=== PATIENT | male | born 1955 | race Caucasian/White ===

== ENCOUNTER 2023-05-01 09:43 | Inpatient (IN) | payer MEDICARE ==
[~2023-05-01] VITALS: Ht 188 cm; Wt 115.2 kg
[2023-05-01 10:50] LABS: Hemoglobin 14.4 g/dL (13.5-17.5); Mean Corpuscular HGB 25.9 pg (26.0-34.0); Mean Corpuscular HGB Conc 35.1 g/dL (31.5-36.5); Mean Corpuscular Volume 74 fL (80-100); Platelet Count 339 K/mm3 (150-400); RDW Standard Deviation 34.2 fL (35.1-46.3); Red Blood Cell Count 5.56 M/mm3 (4.30-5.90); White Blood Cell Count 18.56 K/mm3 (4.00-11.30)
[2023-05-01 11:23] LABS: Albumin, Blood 3.4 g/dL (3.4-5.0); Albumin/Globulin Ratio 0.8 (0.8-1.8); Bilirubin, Total 1.7 mg/dL (0.1-1.0); Creatinine, Blood 1.29 mg/dL (0.60-1.20); Globulin, Blood 4.1 g/dL (2.2-4.0); Potassium, Blood 2.3 mmol/L (3.5-5.5); Total Protein, Blood 7.5 g/dL (6.4-8.2)
[2023-05-01 11:26] LABS: BASOPHILS PERCENT MAN 0 % (0-2); EOSINOPHILS ABSOLUTE MAN 0.18 K/mm3 (0.00-0.68); EOSINOPHILS PERCENT MAN 1 % (0-6); LYMPHOCYTES % ATYPICAL MANUAL 1 % (0-0); LYMPHOCYTES ABSOLUTE MAN 6.49 K/mm3 (0.84-5.20); LYMPHOCYTES PERCENT MAN 34 % (21-46); MONOCYTES ABSOLUTE MAN 1.67 K/mm3 (0.16-1.47); MONOCYTES PERCENT MAN 9 % (4-13); SEG NEUTROPHILS PERCENT MAN 55 % (41-73); TOTAL CELLS COUNTED 100
[2023-05-01] MEDS ORDERED: ATEN50 PO (15:47)
[2023-05-01] MEDS ORDERED: SPIRONOLACTONE25 MG PO (15:48)
[2023-05-01] MEDS ORDERED: SOAANZ20 M3 PO (15:48)
[2023-05-01] MEDS ORDERED: CHLO25B PO (15:49)
[2023-05-01] MEDS ORDERED: PANTOPRAZOLE SO2010 PO (15:49)
[2023-05-01] MEDS ORDERED: ATOR40TA PO (15:49)
[2023-05-01] MEDS ORDERED: PLAVIX75 MG PO (15:50)
[2023-05-01] MEDS ORDERED: Prinivil10 MG PO (15:50)
[2023-05-01] MEDS ORDERED: XARELTO20 M1 PO (15:50)
[2023-05-01] MEDS ORDERED: EZETIMIBE10 M6 PO (15:51)
[2023-05-01] MEDS ORDERED: POTA10T PO (15:53)
[2023-05-01 17:32] VITALS: BP 158/102
[2023-05-01 18:04] LABS: Albumin, Blood 3.6 g/dL (3.4-5.0); Anion Gap 12 mmol/L (6-16); Blood Urea Nitrogen 32 mg/dL (8-24); Bun/Creatinine Ratio 25.4 (12.0-20.0); CO2, Blood 32 mmol/L (21-32); Calcium, Blood 9.1 mg/dL (8.5-10.1); Chloride, Blood 77 mmol/L (98-108); Creatinine, Blood 1.26 mg/dL (0.60-1.20); Glomerular Filtration Rate 63 (60-); Glucose, Blood 145 mg/dL (70-99); Magnesium, Blood 2.8 mg/dL (1.6-2.4); Phosphorus, Blood 3.6 mg/dL (2.5-4.9); Potassium, Blood 2.6 mmol/L (3.5-5.5); Sodium, Blood 121 mmol/L (136-145)
--- NOTE | 2023-05-01 18:49 | NUR ---
ADMISSION MR GARRETT ARRIVED FROM THE ER AT 1655 TO BE IMMEDIATELY TRANSFERED DOWN TO NUCLEAR MEDICINE. PLAN FOR STRESS TEST TOMORROW AM. PT ACKNOWLEDGED EDUCATION ON NO CAFFEINE AFTER 7PM AND NPO EXCEPT WATER AFTER MIDNIGHT. NO CHEST PAIN OR SOB. NO PAIN WHILE RESTING IN BED, HE SAID HE DOES GET RIGHT LEG PAIN WHEN HE STANDS OR WALKS. BED LOW, CALL LIGHT IN REACH.
[2023-05-01 19:28] VITALS: BP 164/98
[2023-05-02] VITALS (8 sets, daily range): BP systolic 156–182; BP diastolic 69–111
[2023-05-02 04:54] LABS: BASOPHILS ABSOLUTE AUTO 0.04 K/mm3 (0.00-0.23); BASOPHILS PERCENT AUTO 0 % (0-2); EOSINOPHILS PERCENT AUTO 0 % (0-6); Hematocrit 36.8 % (37.0-53.0); IMMATURE GRAN ABSOLUTE AUTO 0.06 K/mm3 (0.00-0.10); IMMATURE GRAN PERCENT AUTO 0 % (0-1); LYMPHOCYTES ABSOLUTE AUTO 4.65 K/mm3 (0.84-5.20); LYMPHOCYTES PERCENT AUTO 32 % (21-46); MONOCYTES ABSOLUTE AUTO 1.73 K/mm3 (0.16-1.47); MONOCYTES PERCENT AUTO 12 % (4-13); Mean Corpuscular HGB 26.4 pg (26.0-34.0); Mean Corpuscular HGB Conc 35.3 g/dL (31.5-36.5); Mean Corpuscular Volume 75 fL (80-100); Mean Platelet Volume 9.3 fL (9.1-12.4); NEUTROPHILS ABSOLUTE AUTO 8.11 K/mm3 (1.96-9.15); NEUTROPHILS PERCENT AUTO 56 % (41-73); Platelet Count 267 K/mm3 (150-400); RDW Coefficient Variation 13.1 % (11.7-14.2); RDW Standard Deviation 35.1 fL (35.1-46.3); Red Blood Cell Count 4.92 M/mm3 (4.30-5.90); White Blood Cell Count 14.59 K/mm3 (4.00-11.30)
[2023-05-02 05:26] LABS: Magnesium, Blood 2.3 mg/dL (1.6-2.4)
[2023-05-02 05:34] LABS: Albumin, Blood 2.9 g/dL (3.4-5.0); Albumin/Globulin Ratio 0.8 (0.8-1.8); Bilirubin, Total 1.6 mg/dL (0.1-1.0); Bun/Creatinine Ratio 24.2 (12.0-20.0); Calcium, Blood 8.9 mg/dL (8.5-10.1); Creatinine, Blood 1.2 mg/dL (0.60-1.20); Globulin, Blood 3.5 g/dL (2.2-4.0); Phosphorus, Blood 2.8 mg/dL (2.5-4.9); Potassium, Blood 2.4 mmol/L (3.5-5.5); Total Protein, Blood 6.4 g/dL (6.4-8.2)
--- NOTE | 2023-05-02 06:37 | NUR ---
PT IS AOX4, AMBULATORY WITH PAIN IN RLE, DENIES CHEST PAIN/SOB, POTASSIUM CRITICALLY LOW THIS MORNING, MD ORDERED PO AND IV POTASSIUM. PT HAS NOT HAD CAFFEINE OR FOOD FOR PENDING STRESS TEST TODAY. FIRE SAFETY REVIEWED.
--- NOTE | 2023-05-02 10:10 | NUR ---
RN NOTE MR GERRY HAS 2/10 R LEG PAIN AT REST, INCREASES WHEN HE STANDS. NPO EXCEPT WATER FOR PLANNED 11AM STRESS TEST. DENIES CHEST PAIN OR SOB. POTASSOIUM IV REPLACEMENT ALMOST COMPLETED. BED LOW, CALL LIGHT IN REACH.
[2023-05-02 12:08] LABS: Albumin, Blood 3.5 g/dL (3.4-5.0); Anion Gap 8 mmol/L (6-16); Blood Urea Nitrogen 28 mg/dL (8-24); CO2, Blood 32 mmol/L (21-32); Calcium, Blood 9.1 mg/dL (8.5-10.1); Chloride, Blood 86 mmol/L (98-108); Creatinine, Blood 1.12 mg/dL (0.60-1.20); Glomerular Filtration Rate 72 (60-); Glucose, Blood 131 mg/dL (70-99); Phosphorus, Blood 2.4 mg/dL (2.5-4.9); Sodium, Blood 126 mmol/L (136-145)
--- NOTE | 2023-05-02 15:45 | NUR ---
SHIFT SUMMARY MR GERRY HAD HIS STRESS TEST TODAY FOLLOWED BY BEDSIDE ECHO. TELE AFIB. JAKOB CHIU ON. PT SITTING IN A RECLINER NOW WATCHING SPORTS WITH HIS , DENIES ANY NEEDS CURRENTLY. HE HAS SOME R LEG PAIN, WORSE ON AMBULATING AND STANDING, GIVEN TYLENOL WITH SOME RELIEF. NO CHEST PAIN OR SOB.
--- NOTE | 2023-05-02 17:58 | NUR ---
MD CALL DR DANG CALLED FOR HYPERTENSION. TELEPHONE ORDER FOR HYDRALAZINE 10-20MG IV Q6HRS PRN SBP GREATER THAN 160. READ BACK DONE AND ENTERED INTO Verid.
[2023-05-03] VITALS (14 sets, daily range): BP systolic 93–212; BP diastolic 49–108
[2023-05-03 04:52] LABS: BASOPHILS ABSOLUTE AUTO 0.05 K/mm3 (0.00-0.23); BASOPHILS PERCENT AUTO 0 % (0-2); EOSINOPHILS PERCENT AUTO 0 % (0-6); Hematocrit 36.3 % (37.0-53.0); Hemoglobin 12.4 g/dL (13.5-17.5); IMMATURE GRAN ABSOLUTE AUTO 0.07 K/mm3 (0.00-0.10); IMMATURE GRAN PERCENT AUTO 1 % (0-1); LYMPHOCYTES ABSOLUTE AUTO 4.13 K/mm3 (0.84-5.20); LYMPHOCYTES PERCENT AUTO 31 % (21-46); MONOCYTES ABSOLUTE AUTO 1.44 K/mm3 (0.16-1.47); MONOCYTES PERCENT AUTO 11 % (4-13); Mean Corpuscular HGB 26.2 pg (26.0-34.0); Mean Corpuscular HGB Conc 34.2 g/dL (31.5-36.5); Mean Corpuscular Volume 77 fL (80-100); Mean Platelet Volume 9.3 fL (9.1-12.4); NEUTROPHILS ABSOLUTE AUTO 7.74 K/mm3 (1.96-9.15); NEUTROPHILS PERCENT AUTO 58 % (41-73); Platelet Count 273 K/mm3 (150-400); RDW Coefficient Variation 13.1 % (11.7-14.2); RDW Standard Deviation 36.4 fL (35.1-46.3); Red Blood Cell Count 4.74 M/mm3 (4.30-5.90); White Blood Cell Count 13.43 K/mm3 (4.00-11.30)
[2023-05-03 05:46] LABS: Anion Gap 6 mmol/L (6-16); Blood Urea Nitrogen 22 mg/dL (8-24); Bun/Creatinine Ratio 20.8 (12.0-20.0); CO2, Blood 31 mmol/L (21-32); Calcium, Blood 8.7 mg/dL (8.5-10.1); Chloride, Blood 92 mmol/L (98-108); Creatinine, Blood 1.06 mg/dL (0.60-1.20); Glomerular Filtration Rate 77 (60-); Glucose, Blood 128 mg/dL (70-99); Phosphorus, Blood 2.2 mg/dL (2.5-4.9); Potassium, Blood 3.1 mmol/L (3.5-5.5); Sodium, Blood 129 mmol/L (136-145)
--- NOTE | 2023-05-03 07:39 | NUR ---
PT EXPERIENCED INCREASING HYPERTENSION THROUGH THE NIGHT, HYDRALAZINE WAS NOT EFFECTIVE. AROUND 0530 PT COMPLAINED OF CHEST PAIN AND BP INCREASED AGAIN. MD CALLED, EKG COMPLETED, FOLLOWED ORDERS. CP HAS RESOLVED, BP IS DECREASING, PAIN IS ALSO DECREASING AFTER TYLENOL. OTHERWISE NO ACUTE CHANGES NOTED. FIRE SAFETY REVIEWED.
--- NOTE | 2023-05-03 09:09 | NUR ---
MD CALL PT C/O FEELING DIZZY, BLURRED VISION, C/O "PERCEPTION BEING OFF". BLOOD PRESSURE LOW. DR DANG CALLED AND INFORMED - SAID TO GIVE PT GATOR AID AND HE WILL COME TO ASSESS HIM. PT ADVISED NOT TO GET OUT OF BED ALONE - HE VERBALISED UNDERSTANDING OF INSTRUCTIONS. HE SAID CHEST PAIN HAS GONE COMPLETELY. HEADACHE DOWN TO 2/10 NOW. PT KEEPS FALLING ASLEEP BUT WAKES EASILY. BED LOW, CALL LIGHT IN REACH.
[2023-05-03 14:06] LABS: Albumin, Blood 3.1 g/dL (3.4-5.0); Anion Gap 8 mmol/L (6-16); Blood Urea Nitrogen 26 mg/dL (8-24); Bun/Creatinine Ratio 14.8 (12.0-20.0); CO2, Blood 29 mmol/L (21-32); Calcium, Blood 8.6 mg/dL (8.5-10.1); Chloride, Blood 92 mmol/L (98-108); Creatinine, Blood 1.76 mg/dL (0.60-1.20); Glomerular Filtration Rate 42 (60-); Glucose, Blood 101 mg/dL (70-99); Phosphorus, Blood 2.6 mg/dL (2.5-4.9); Potassium, Blood 3.3 mmol/L (3.5-5.5); Sodium, Blood 129 mmol/L (136-145)
--- NOTE | 2023-05-03 16:20 | NUR ---
SHIFT SUMMARY MR GARRETT HAD EPISODE OF LOW BLOOD PRESSURE, BLURRED VISION AND DIZZYNESS THIS MORNING WHICH HAS RESOLVED. RECENT SBP 160. FEVER 100.4, GIVEN TYLENOL. MR GARRETT IS WEIGHT BEARING WITH DIFFICULTY ON THE RIGHT LEG, PAIN AT 7/10 R LEG BEFORE TYLENOL, USING WALKER TO STAND. R LEG HAS JAKOB HOSE ON AND IS ELEVATED ON SUPPORT WEDGE. HE HAS ONLY VOIDED TWICE SO FAR THIS SHIFT. 24 HOUR URINE STARTED WITH FIRST VOID AT 1300HRS. NO CALLS FROM TABULATING SUPERVISOR. BED LOW, CALL LIGHT IN REACH.
[2023-05-04 04:24] VITALS: BP 134/80
[2023-05-04 04:44] LABS: BASOPHILS ABSOLUTE AUTO 0.04 K/mm3 (0.00-0.23); BASOPHILS PERCENT AUTO 0 % (0-2); EOSINOPHILS ABSOLUTE AUTO 0.01 K/mm3 (0.00-0.68); EOSINOPHILS PERCENT AUTO 0 % (0-6); Hematocrit 33.3 % (37.0-53.0); Hemoglobin 11.3 g/dL (13.5-17.5); IMMATURE GRAN ABSOLUTE AUTO 0.05 K/mm3 (0.00-0.10); IMMATURE GRAN PERCENT AUTO 0 % (0-1); LYMPHOCYTES ABSOLUTE AUTO 4.14 K/mm3 (0.84-5.20); LYMPHOCYTES PERCENT AUTO 31 % (21-46); MONOCYTES ABSOLUTE AUTO 1.66 K/mm3 (0.16-1.47); MONOCYTES PERCENT AUTO 12 % (4-13); Mean Corpuscular HGB 26.2 pg (26.0-34.0); Mean Corpuscular HGB Conc 33.9 g/dL (31.5-36.5); Mean Corpuscular Volume 77 fL (80-100); Mean Platelet Volume 9.1 fL (9.1-12.4); NEUTROPHILS ABSOLUTE AUTO 7.68 K/mm3 (1.96-9.15); NEUTROPHILS PERCENT AUTO 57 % (41-73); Platelet Count 266 K/mm3 (150-400); RDW Coefficient Variation 13.5 % (11.7-14.2); RDW Standard Deviation 38.3 fL (35.1-46.3); Red Blood Cell Count 4.32 M/mm3 (4.30-5.90); White Blood Cell Count 13.58 K/mm3 (4.00-11.30)
[2023-05-04 05:09] LABS: Albumin, Blood 2.7 g/dL (3.4-5.0); Anion Gap 7 mmol/L (6-16); Blood Urea Nitrogen 31 mg/dL (8-24); Bun/Creatinine Ratio 17.6 (12.0-20.0); CO2, Blood 27 mmol/L (21-32); Calcium, Blood 8.4 mg/dL (8.5-10.1); Chloride, Blood 95 mmol/L (98-108); Creatinine, Blood 1.76 mg/dL (0.60-1.20); Glomerular Filtration Rate 42 (60-); Glucose, Blood 132 mg/dL (70-99); Magnesium, Blood 2.4 mg/dL (1.6-2.4); Phosphorus, Blood 3.9 mg/dL (2.5-4.9); Potassium, Blood 3.5 mmol/L (3.5-5.5); Sodium, Blood 129 mmol/L (136-145)
--- NOTE | 2023-05-04 06:01 | NUR ---
HTN GREATLY IMPROVED COMPARED TO PREVIOUS SHIFTS, PT COMPLAINS OF INCREASING PAIN TO RLE, TYLENOL AND TORADOL MINIMALLY EFFECTIVE BUT PT DOES NOT WANT STRONG MEDS/NARCOTICS. EXPRESSING CONCERN THAT HIS LEG IS NOT RECEIVING ADEQUATE ATTENTION. OTHERWISE NO ACUTE CHANGES NOTED. FIRE SAFETY REVIEWED.
[2023-05-04 07:25] VITALS: BP 145/89
[2023-05-04 15:13] VITALS: BP 140/93
--- NOTE | 2023-05-04 17:24 | NUR ---
SUMMARY- PT A/O X4, INDEPENDANT IN ROOM, STEADY ON FEET. GOT UP AND HAD A SHOWER TODAY WITH SET UP. RLE CELLULITIS REMAINS REDDENED AND LEG SWOLLEN, NOT MUCH IMPOROVEMENT- STARTED BACK UP ON IV ABX. PAIN IN RLE, MEDICATED WITH ULTRAM WHICH PT STATES IT TAKES THE EDGE OFF BUT NOT COMPLETELY CONTROLLS THE PAIN, DECLINES ANYTHING STRONTGER BECAUSE IT WOULD CAUSE CONSITPATION. CALLED DR CRISTINA 171 AND OBTAINED AN INCREASED FREQ IN ULTRAM IN CASE PT NEEDED A NIGHTLY DOSE. TOLEARTING FOOD AND FLIUDS. WILL REPORT TO NOC RN
[2023-05-04 19:40] VITALS: BP 164/85
[2023-05-05 01:58] VITALS: BP 164/95
--- NOTE | 2023-05-05 05:53 | NUR ---
SHIFT SUMMARY PRN TRAMADOL GIVEN X2 FOR RLE PAIN, WEARS OWN CPAP AT NIGHT. VERY COMPLIANT WITH FLUID RESTRICTION FIRE SAFETY REVIEWED, NO IGNITION SOURCES.
[2023-05-05 07:02] LABS: BASOPHILS ABSOLUTE AUTO 0.05 K/mm3 (0.00-0.23); BASOPHILS PERCENT AUTO 0 % (0-2); EOSINOPHILS ABSOLUTE AUTO 0.02 K/mm3 (0.00-0.68); EOSINOPHILS PERCENT AUTO 0 % (0-6); Hematocrit 33.1 % (37.0-53.0); Hemoglobin 10.9 g/dL (13.5-17.5); IMMATURE GRAN ABSOLUTE AUTO 0.07 K/mm3 (0.00-0.10); IMMATURE GRAN PERCENT AUTO 1 % (0-1); LYMPHOCYTES ABSOLUTE AUTO 3.34 K/mm3 (0.84-5.20); LYMPHOCYTES PERCENT AUTO 25 % (21-46); MONOCYTES ABSOLUTE AUTO 1.54 K/mm3 (0.16-1.47); MONOCYTES PERCENT AUTO 12 % (4-13); Mean Corpuscular HGB 26.1 pg (26.0-34.0); Mean Corpuscular HGB Conc 32.9 g/dL (31.5-36.5); Mean Corpuscular Volume 79 fL (80-100); Mean Platelet Volume 9.3 fL (9.1-12.4); NEUTROPHILS ABSOLUTE AUTO 8.18 K/mm3 (1.96-9.15); NEUTROPHILS PERCENT AUTO 62 % (41-73); Platelet Count 298 K/mm3 (150-400); RDW Coefficient Variation 13.6 % (11.7-14.2); Red Blood Cell Count 4.18 M/mm3 (4.30-5.90)
[2023-05-05 07:20] LABS: Albumin, Blood 2.9 g/dL (3.4-5.0); Albumin/Globulin Ratio 0.9 (0.8-1.8); Bilirubin, Total 1.7 mg/dL (0.1-1.0); Bun/Creatinine Ratio 19.9 (12.0-20.0); Calcium, Blood 8.9 mg/dL (8.5-10.1); Creatinine, Blood 1.56 mg/dL (0.60-1.20); Globulin, Blood 3.4 g/dL (2.2-4.0); Magnesium, Blood 2.1 mg/dL (1.6-2.4); Phosphorus, Blood 2.8 mg/dL (2.5-4.9); Potassium, Blood 4.6 mmol/L (3.5-5.5); Total Protein, Blood 6.3 g/dL (6.4-8.2)
[2023-05-05 07:28] VITALS: BP 176/99
[2023-05-05] MEDS ORDERED: CHLO25B PO (12:58)
--- NOTE | 2023-05-05 15:30 | NUR ---
CALLED DR CRISTINA 1414, NOTIFIED HIM THAT PT IS UNABLE TO BARE WEIGHT ON LEGS AND BARELY ABLE TO STAND TO GET INTO A WHEELCHAIR TODAY WHICH IS MARKED DECLINE FROM YESTERDAY WHERE HE WAS ABLE TO STAND WITH A WALKER AND AMBULATE INTO BATHROOM TO HAVE A SHOWER. ALSO LET HIM KNOW THE CT IS COMPLETE. RN TOOK ORDER FOR PT/OT, HEAT AND COLD PRN AND CONT WITH ULTRAM PRN.
[2023-05-05 16:05] VITALS: BP 181/89
--- NOTE | 2023-05-05 16:28 | NUR ---
DR. GONZALEZ NOTIFIED OF ELEVATED BP AND HR. NEW ORDER RECEIVED PRN HYDRALAZINE. HE IS AWARE OF R LOWER EXTREMITY ULTRASOUND AND WILL FOLLOW UP.
[2023-05-05 17:47] VITALS: BP 180/95
--- NOTE | 2023-05-05 18:01 | NUR ---
RECHECKED VS AFTER HYDRALAZINE 10MG IV AT 1648- BP REMAINS ELEVATED, HR REMAINS HIGH 110-S-130'S, PT STATES HE FEELS CRAPPY AND A LITTLE LIGHTHEADED. NOTIFIED DR CRISTINA, ORDER RECEIVED FOR IV METOPROLOL. ORDER TO DC ALDACTONE AND KCL AND LOVENOX. WANTS TO CONTINUE PLAVIX.
--- NOTE | 2023-05-05 18:03 | NUR ---
SHIFT SUMMARY PT A&OX4, VOIDING INDEPENDENTLY VIA URINAL, REPORTS NO BM TODAY, NOT AMBULATORY AND HAS REMAINED IN BED T/O SHIFT DUE TO PAIN AND EDEMA IN R LOWER LEG EXTREMITY FROM CELLULITIS. PAIN MANAGED WITH ULTRAM AND COLD THERAPY. PT HAS A HX OF AFIB AND IS ON TELE. PT IS ON A FLUID RESTRICTION. PT'S BP AND HR HAS REMAINED ELEVATED T/O SHIFT AND REPORTS BEING DIZZY, LIGHTHEADED, FATIGUED, AND HAVING A LOSS OF APPETITE. PT IS ALSO RUNNING A LOW GRADE FEVER. DR. GONZALEZ NOTIFIED OF BP, HR, AND CHANGE IN STATUS. CHANGES WERE MADE TO THE EMAR. PT ALSO HAD A CT AND ULTRASOUND TODAY ON R LOWER LEG EXTREMITY SHOWING A HEMATOMA. WILL MONITOR AND REPORT TO ONCOMING RN.
[2023-05-05 19:32] VITALS: BP 137/94
[2023-05-06 03:51] VITALS: BP 174/90
[2023-05-06 06:02] LABS: BASOPHILS ABSOLUTE AUTO 0.03 K/mm3 (0.00-0.23); BASOPHILS PERCENT AUTO 0 % (0-2); EOSINOPHILS ABSOLUTE AUTO 0.01 K/mm3 (0.00-0.68); EOSINOPHILS PERCENT AUTO 0 % (0-6); Hematocrit 30.7 % (37.0-53.0); Hemoglobin 10.2 g/dL (13.5-17.5); IMMATURE GRAN ABSOLUTE AUTO 0.08 K/mm3 (0.00-0.10); IMMATURE GRAN PERCENT AUTO 1 % (0-1); LYMPHOCYTES PERCENT AUTO 20 % (21-46); MONOCYTES ABSOLUTE AUTO 1.95 K/mm3 (0.16-1.47); MONOCYTES PERCENT AUTO 14 % (4-13); Mean Corpuscular HGB 26.2 pg (26.0-34.0); Mean Corpuscular HGB Conc 33.2 g/dL (31.5-36.5); Mean Corpuscular Volume 79 fL (80-100); Mean Platelet Volume 9.1 fL (9.1-12.4); NEUTROPHILS ABSOLUTE AUTO 9.37 K/mm3 (1.96-9.15); NEUTROPHILS PERCENT AUTO 65 % (41-73); Platelet Count 283 K/mm3 (150-400); RDW Coefficient Variation 13.8 % (11.7-14.2); RDW Standard Deviation 39.6 fL (35.1-46.3); Red Blood Cell Count 3.89 M/mm3 (4.30-5.90); White Blood Cell Count 14.34 K/mm3 (4.00-11.30)
--- NOTE | 2023-05-06 06:10 | NUR ---
SHIFT SUMMARY PRN TRAMADOL GIVEN X1. NO OTHER COMPLAINTS OR EVENTS OVERNIGHT. FIRE SAFETY REVIEWED. NO IGNITION SOURCES
[2023-05-06 06:32] LABS: Calcium, Blood 8.8 mg/dL (8.5-10.1); Creatinine, Blood 1.59 mg/dL (0.60-1.20); Magnesium, Blood 2.2 mg/dL (1.6-2.4); Phosphorus, Blood 3.5 mg/dL (2.5-4.9); Potassium, Blood 4.3 mmol/L (3.5-5.5)
[2023-05-06 07:27] VITALS: BP 170/80
[2023-05-06 10:40] VITALS: BP 122/60
[2023-05-06 15:29] VITALS: BP 152/72
--- NOTE | 2023-05-06 17:38 | NUR ---
SHIFT SUMMARY- PT IS A/O, PLESANT AND COOPERATIVE. HE IS EATING AND DRINKING WELL. HE WORKED WITH PT AND OT THIS SHIFT. WAS UP TO THE CHAIR THIS SHIFT. HAD A BM. HE IS USING THE URINAL AT BEDSIDE. RECIEVING IV ABX. BP WAS ELEVATED THIS MORNING BUT DECREASED AFTER PO AM MEDS. HIS CALL LIGHT IS WITIN REACH.
[2023-05-06 19:15] VITALS: BP 159/72
[2023-05-07 02:47] VITALS: BP 140/66
--- NOTE | 2023-05-07 04:36 | NUR ---
SHIFT SUMMARY 67 YR M ADMITTED ON 05/01/23 FOR HYPOKALEMIA. FULL CODE. NO ACUTE CHANGES THIS SHIFT. PT C/O PIN IN RLL AND MEDICATED PER EMAR WITH GOOD RESULTS. HE IS VERY PLEASANT AND COOPERATIVE WITH CARE. BP WAS 140/66 AT 0245. PT HAS SLEPT FOR MOST OF THIS SHIFT.
[2023-05-07 06:11] LABS: BASOPHILS ABSOLUTE AUTO 0.02 K/mm3 (0.00-0.23); BASOPHILS PERCENT AUTO 0 % (0-2); EOSINOPHILS PERCENT AUTO 0 % (0-6); Hematocrit 27.8 % (37.0-53.0); Hemoglobin 9.3 g/dL (13.5-17.5); IMMATURE GRAN ABSOLUTE AUTO 0.12 K/mm3 (0.00-0.10); IMMATURE GRAN PERCENT AUTO 1 % (0-1); LYMPHOCYTES ABSOLUTE AUTO 3.19 K/mm3 (0.84-5.20); LYMPHOCYTES PERCENT AUTO 22 % (21-46); MONOCYTES ABSOLUTE AUTO 1.81 K/mm3 (0.16-1.47); MONOCYTES PERCENT AUTO 12 % (4-13); Mean Corpuscular HGB 26.1 pg (26.0-34.0); Mean Corpuscular HGB Conc 33.5 g/dL (31.5-36.5); Mean Corpuscular Volume 78 fL (80-100); Mean Platelet Volume 9.1 fL (9.1-12.4); NEUTROPHILS ABSOLUTE AUTO 9.43 K/mm3 (1.96-9.15); NEUTROPHILS PERCENT AUTO 65 % (41-73); Platelet Count 280 K/mm3 (150-400); RDW Coefficient Variation 13.9 % (11.7-14.2); RDW Standard Deviation 39.8 fL (35.1-46.3); Red Blood Cell Count 3.56 M/mm3 (4.30-5.90); White Blood Cell Count 14.57 K/mm3 (4.00-11.30)
[2023-05-07 06:30] LABS: Bun/Creatinine Ratio 22.3 (12.0-20.0); Calcium, Blood 8.7 mg/dL (8.5-10.1); Creatinine, Blood 1.79 mg/dL (0.60-1.20)
[2023-05-07 07:44] VITALS: BP 144/85
[2023-05-07 15:00] LABS: Source, Urine Clean Catch
--- NOTE | 2023-05-07 15:22 | NUR ---
BLADDER SCAN PREFORMED. FIRST READING OF 9ML, SECOND OF 60 ML, THIRD OF 11ML
[2023-05-07 15:51] LABS: Appearance, Urine Clear (Clear); Bilirubin, Urine Neg (Neg); Blood, Urine 3+ (Neg); Color, Urine Yellow (P-Yellow); Glucose Qualitative, Urine 3+ (Neg); Ketones, Urine Neg (Neg); Leukocyte Esterase, Urine Neg (Neg); Nitrite, Urine Neg (Neg); Protein, Urine 2+ (Neg); Urobilinogen, Urine NORM (Normal)
[2023-05-07 16:00] LABS: Granular Casts 0-2 /lpf (0)
[2023-05-07 16:02] LABS: Squamous Epithelial Cells Not Seen /hpf (Few)
[2023-05-07 16:03] LABS: Bacteria Few /hpf; Renal Epithelial Rare /hpf (0-Rare)
[2023-05-07 16:05] VITALS: BP 112/56
[2023-05-07 16:49] LABS: Magnesium, Blood 2.3 mg/dL (1.6-2.4)
[2023-05-07 16:50] LABS: Bun/Creatinine Ratio 18.7 (12.0-20.0); Calcium, Blood 8.7 mg/dL (8.5-10.1); Creatinine, Blood 2.67 mg/dL (0.60-1.20); Phosphorus, Blood 3.3 mg/dL (2.5-4.9); Potassium, Blood 4.1 mmol/L (3.5-5.5)
[2023-05-07 19:47] VITALS: BP 129/75
[2023-05-08 04:13] VITALS: BP 137/80
--- NOTE | 2023-05-08 04:38 | NUR ---
SHIFT SUMMARY 67 YR M ADMITTED ON 05/01/23. FULL CODE. NO ACUTE CHANGES THIS SHIFT. PT HAS HAD NO C/O PAIN OR DISCOMFORT THIS SHIFT. BP WAS 137/80 @ 0413. PT IS PLEASANT AND COOPERATIVE W/ CARE. USES BEDSIDE URINAL INDEPENDANTLY AND CALLS APPROPRIATELY FOR ASSISTANCE.
[2023-05-08 05:09] LABS: BASOPHILS ABSOLUTE AUTO 0.04 K/mm3 (0.00-0.23); BASOPHILS PERCENT AUTO 0 % (0-2); EOSINOPHILS ABSOLUTE AUTO 0.01 K/mm3 (0.00-0.68); EOSINOPHILS PERCENT AUTO 0 % (0-6); Hematocrit 27.1 % (37.0-53.0); Hemoglobin 8.9 g/dL (13.5-17.5); IMMATURE GRAN PERCENT AUTO 1 % (0-1); LYMPHOCYTES ABSOLUTE AUTO 3.58 K/mm3 (0.84-5.20); LYMPHOCYTES PERCENT AUTO 28 % (21-46); MONOCYTES ABSOLUTE AUTO 1.62 K/mm3 (0.16-1.47); MONOCYTES PERCENT AUTO 13 % (4-13); Mean Corpuscular HGB 25.9 pg (26.0-34.0); Mean Corpuscular HGB Conc 32.8 g/dL (31.5-36.5); Mean Corpuscular Volume 79 fL (80-100); Mean Platelet Volume 9.2 fL (9.1-12.4); NEUTROPHILS ABSOLUTE AUTO 7.36 K/mm3 (1.96-9.15); NEUTROPHILS PERCENT AUTO 58 % (41-73); Platelet Count 300 K/mm3 (150-400); RDW Coefficient Variation 14.2 % (11.7-14.2); RDW Standard Deviation 40.9 fL (35.1-46.3); Red Blood Cell Count 3.44 M/mm3 (4.30-5.90); White Blood Cell Count 12.71 K/mm3 (4.00-11.30)
[2023-05-08 05:35] LABS: Albumin, Blood 2.2 g/dL (3.4-5.0); Albumin/Globulin Ratio 0.6 (0.8-1.8); Bilirubin, Total 1.3 mg/dL (0.1-1.0); Bun/Creatinine Ratio 20.6 (12.0-20.0); Calcium, Blood 8.5 mg/dL (8.5-10.1); Creatinine, Blood 2.47 mg/dL (0.60-1.20); Globulin, Blood 3.7 g/dL (2.2-4.0); Potassium, Blood 3.7 mmol/L (3.5-5.5); Total Protein, Blood 5.9 g/dL (6.4-8.2)
[2023-05-08 07:11] VITALS: BP 148/74
[2023-05-08 16:13] VITALS: BP 135/71
--- NOTE | 2023-05-08 17:40 | NUR ---
PT IS A/OX4, PLEASANT AND COOPERATIVE. UP WITH ASSIST TO THE BSC AND TO THE CHAIR. PT IS ABLE TO SIT ON THE SIDE OF THE BED UNASSISTED. THE PTS HR ELEVATED INTO THE 150'S WITH EXCERTION TODAY OTHERWISE REMAINED IN THE 110'S - 120'S. PT WAS UP IN THE CHAIR TODAY BETWEEN BREAKFAST AND LUNCH. DR. VALENCIA CONSULTED ON THE PT TODAY. 24HR URINE STARTED. PT DENIED ANY C/P. PT REPORTED MILD PAIN IN HIS RLE, HE DECLINED PAIN MED THIS AM. CALL LIGHT IN REACH WILL CONTINUE TO MONITOR AND ASSESS FOR CHANGES
[2023-05-08 19:11] VITALS: BP 142/78
[2023-05-09 04:18] VITALS: BP 141/81
--- NOTE | 2023-05-09 04:43 | NUR ---
SHIFT SUMMARY ADMITTED FOR HYPOKALEMIA - RESOLVED. PLAN IS FOR DC TO SNF/REHAB. ANTIB RX ARE SCHEDULED. TELEMETRY: TACHY @ 112 BPM, 150'S BPM WITH ACTIVITY. DENIES CHEST PAIN. 24 HOUR URINE PROTEIN COLLECTION IN PROGRESS. CARDIAC DIET. RIGHT LEG CELLULITIS. PT STATES HE HAS A SORE LEFT ARM THIS SHIFT, MEDICATED FOR PAIN THIS SHIFT. DR. VALENCIA IS RENAL CONSULT. HE [place] A 1 [place]IST [place] [facility] [place] HE WEARS HIS CPAP FROM HOME [place]. CT SCAN OF ABDOMEN, CHEST, AND PELVIS WAS UNREMARKABLE. HE IS A&O X3, SOME ANXIETY NOTED.
[2023-05-09 04:57] LABS: Hemoglobin 9.2 g/dL (13.5-17.5)
[2023-05-09 05:36] LABS: Albumin, Blood 2.5 g/dL (3.4-5.0); Anion Gap 9 mmol/L (6-16); Blood Urea Nitrogen 43 mg/dL (8-24); Bun/Creatinine Ratio 20.8 (12.0-20.0); CO2, Blood 24 mmol/L (21-32); Calcium, Blood 8.9 mg/dL (8.5-10.1); Chloride, Blood 101 mmol/L (98-108); Creatinine, Blood 2.07 mg/dL (0.60-1.20); Glomerular Filtration Rate 34 (60-); Glucose, Blood 127 mg/dL (70-99); Magnesium, Blood 2.1 mg/dL (1.6-2.4); Phosphorus, Blood 3.8 mg/dL (2.5-4.9); Potassium, Blood 3.6 mmol/L (3.5-5.5); Sodium, Blood 134 mmol/L (136-145); Thyroid Stimulating Hormone 0.658 uIU/mL (0.360-4.800); Uric Acid, Blood 3.3 mg/dL (3.5-7.2); Vancomycin, Random 23.4 ug/mL
[2023-05-09 05:57] LABS: Albumin, Blood 2.4 g/dL (3.4-5.0); Albumin/Globulin Ratio 0.6 (0.8-1.8); BASOPHILS ABSOLUTE AUTO 0.03 K/mm3 (0.00-0.23); BASOPHILS PERCENT AUTO 0 % (0-2); Bilirubin, Total 1.3 mg/dL (0.1-1.0); C-REACTIVE PROTEIN, EXT RANGE 14.9 mg/dL (0.000-0.300); Calcium, Blood 8.8 mg/dL (8.5-10.1); Creatinine, Blood 2.05 mg/dL (0.60-1.20); EOSINOPHILS ABSOLUTE AUTO 0.01 K/mm3 (0.00-0.68); EOSINOPHILS PERCENT AUTO 0 % (0-6); Globulin, Blood 3.8 g/dL (2.2-4.0); Hematocrit 27.8 % (37.0-53.0); Hemoglobin 9.2 g/dL (13.5-17.5); IMMATURE GRAN ABSOLUTE AUTO 0.09 K/mm3 (0.00-0.10); IMMATURE GRAN PERCENT AUTO 1 % (0-1); LYMPHOCYTES ABSOLUTE AUTO 2.46 K/mm3 (0.84-5.20); LYMPHOCYTES PERCENT AUTO 21 % (21-46); MONOCYTES ABSOLUTE AUTO 1.68 K/mm3 (0.16-1.47); MONOCYTES PERCENT AUTO 14 % (4-13); Mean Corpuscular HGB Conc 33.1 g/dL (31.5-36.5); Mean Corpuscular Volume 79 fL (80-100); NEUTROPHILS ABSOLUTE AUTO 7.41 K/mm3 (1.96-9.15); NEUTROPHILS PERCENT AUTO 63 % (41-73); Platelet Count 377 K/mm3 (150-400); Potassium, Blood 3.7 mmol/L (3.5-5.5); RDW Coefficient Variation 14.1 % (11.7-14.2); RDW Standard Deviation 40.6 fL (35.1-46.3); Red Blood Cell Count 3.54 M/mm3 (4.30-5.90); Total Protein, Blood 6.2 g/dL (6.4-8.2); White Blood Cell Count 11.68 K/mm3 (4.00-11.30)
[2023-05-09 07:11] VITALS: BP 129/59
[2023-05-09 12:44] LABS: Protein, Urine Quantitative 77.3 mg/dL (0.0-11.9)
[2023-05-09 14:48] LABS: Vancomycin, Trough 17.2 ug/mL (5.0-10.0)
[2023-05-09 15:37] VITALS: BP 148/90
--- NOTE | 2023-05-09 18:16 | NUR ---
SHIFT SUMMARY PT A&OX4, VOIDING INDEPENDENTLY VIA URINAL AND BEDSIDE COMMODE, AMB USING A WALKER, PAIN MANAGED WITH ULTRAM AND COLD THERAPY. PT ON TELE AND HAS BEEN IN AFIB AND SINUS TACH T/O SHIFT IN THE 1 TEENS. PT ASYMPTOMATIC, HAS HX OF AFIB. PT HAD POWERGLIDE PLACED THIS AM IN HIS ZEYNEP. PT REPORTS IMPROVEMENT IN PAIN AND SYMPTOMS. WILL CONTINUE TO MONITOR T/O SHIFT AND REPORT TO ONCOMING RN.
[2023-05-09 19:12] VITALS: BP 140/72
[2023-05-10 03:07] VITALS: BP 132/80
--- NOTE | 2023-05-10 04:03 | NUR ---
SHIFT SUMMARY; NO ACUTE CHANGES OVERNIGHT. THE PT IS AXO X4 AND INDEPENDENT TO THE BSC AND USING THE URINAL. THE PT IS ON TELE, WHILE AT REST THE PT IS A-FIB IN THE 110'S, HOWEVER, WHEN THE PT GETS UP TO USE THE BSC HIS HEART GOES UP TO 150/160'S BUT QUICKLY RETURNS TO 110'S WHEN RESTING IN BED AGAIN. THE PT WAS MEDICATED FOR L WRIST PAIN ONCE LAST NIGHT. THE PT HAS HIS CPAP ON THIS EVENING. THE PT DENIES ANY SOB, CHEST PAIN/PRESSURE, N/V OR PAIN. CURRENTLY THE PT IS SLEEPING IN BED WITH THE BED IN THE LOWEST POSITION AND THE CALL LIGHT AT BEDSIDE. FIRE SAFETY MAINTAINED T/O THE NIGHT.
[2023-05-10 04:55] LABS: Hematocrit 25.5 % (37.0-53.0); Hemoglobin 8.3 g/dL (13.5-17.5)
[2023-05-10 05:16] LABS: Albumin, Blood 2.2 g/dL (3.4-5.0); Anion Gap 10 mmol/L (6-16); Blood Urea Nitrogen 37 mg/dL (8-24); Bun/Creatinine Ratio 19.4 (12.0-20.0); CO2, Blood 22 mmol/L (21-32); Calcium, Blood 8.4 mg/dL (8.5-10.1); Chloride, Blood 102 mmol/L (98-108); Creatinine, Blood 1.91 mg/dL (0.60-1.20); Glomerular Filtration Rate 38 (60-); Glucose, Blood 124 mg/dL (70-99); Magnesium, Blood 1.9 mg/dL (1.6-2.4); Phosphorus, Blood 3.4 mg/dL (2.5-4.9); Potassium, Blood 3.8 mmol/L (3.5-5.5); Sodium, Blood 134 mmol/L (136-145)
[2023-05-10 07:21] VITALS: BP 156/75
[2023-05-10 07:54] LABS: BASOPHILS ABSOLUTE AUTO 0.03 K/mm3 (0.00-0.23); BASOPHILS PERCENT AUTO 0 % (0-2); EOSINOPHILS PERCENT AUTO 0 % (0-6); Hematocrit 25.3 % (37.0-53.0); Hemoglobin 8.4 g/dL (13.5-17.5); IMMATURE GRAN ABSOLUTE AUTO 0.07 K/mm3 (0.00-0.10); IMMATURE GRAN PERCENT AUTO 1 % (0-1); LYMPHOCYTES ABSOLUTE AUTO 2.55 K/mm3 (0.84-5.20); LYMPHOCYTES PERCENT AUTO 22 % (21-46); MONOCYTES ABSOLUTE AUTO 1.75 K/mm3 (0.16-1.47); MONOCYTES PERCENT AUTO 15 % (4-13); Mean Corpuscular HGB 26.1 pg (26.0-34.0); Mean Corpuscular HGB Conc 33.2 g/dL (31.5-36.5); Mean Corpuscular Volume 79 fL (80-100); Mean Platelet Volume 9.5 fL (9.1-12.4); NEUTROPHILS ABSOLUTE AUTO 7.48 K/mm3 (1.96-9.15); NEUTROPHILS PERCENT AUTO 63 % (41-73); Platelet Count 328 K/mm3 (150-400); RDW Coefficient Variation 14.2 % (11.7-14.2); RDW Standard Deviation 40.4 fL (35.1-46.3); Red Blood Cell Count 3.22 M/mm3 (4.30-5.90); White Blood Cell Count 11.88 K/mm3 (4.00-11.30)
[2023-05-10 14:42] VITALS: BP 127/70
--- NOTE | 2023-05-10 18:03 | NUR ---
SHIFT SUMMARY PT A&OX4, VOIDING INDEPENDENTLY VIA URINAL AND BEDSIDE COMMODE, AMB USING A FWW, PAIN MANAGED WITH ULTRAM AND COLD THERAPY. PT IS ON TELE AND HAS BEEN IN AFIB, HAS A HX OF AFIB, AND CONT TO HAVE AN ELEVATED HR. PT ASYMPTOMATIC. PT REPORTS IMPROVEMENT IN PAIN AND SYMPTOMS OF RLL. PAIN MANAGED WITH ULTRAM. CELLULITIS RESOLVING IN RLL. NEW ONSET OF SWELLING IN THE L HAND AND FOREARM. CT DONE THIS AFTERNOON SHOWING CELLULITIS. PT CONT QUINCY AND KATHRINE. WILL CONTINUE TO MONITOR UNTIL END OF SHIFT AND REPORT TO THE ONCOMING RN.
[2023-05-10 19:17] VITALS: BP 162/87
--- NOTE | 2023-05-11 04:01 | NUR ---
SHIFT SUMMARY PATIENT HAD NO ACUTE CHANGES. AXOX 4 AND INDEPENDENT IN ROOM W/FWW TO BSC. USES URINAL AT BEDSIDE. POWERGLIDE KEIKO ARM INTACT. IV ABX INFUSED. TELE MONITOR AFIB 112 W/PVC, BBB. USES CPAP AT NIGHT. REPORTED LEFT WRIST/ARM PAIN AND TRAMADOL 50 MG GIVEN PER EMAR. COOPERATIVE WITH CARE. CALL LIGHT IN REACH. BED IN LOWEST POSITION. WILL CONTINUE TO MONITOR UNTIL DAY SHIFT NURSE ASSUMES CARE.
[2023-05-11 05:04] LABS: BASOPHILS ABSOLUTE AUTO 0.03 K/mm3 (0.00-0.23); BASOPHILS PERCENT AUTO 0 % (0-2); EOSINOPHILS PERCENT AUTO 0 % (0-6); Hematocrit 24.1 % (37.0-53.0); Hemoglobin 7.9 g/dL (13.5-17.5); IMMATURE GRAN PERCENT AUTO 1 % (0-1); LYMPHOCYTES ABSOLUTE AUTO 2.51 K/mm3 (0.84-5.20); LYMPHOCYTES PERCENT AUTO 20 % (21-46); MONOCYTES PERCENT AUTO 13 % (4-13); Mean Corpuscular HGB 25.6 pg (26.0-34.0); Mean Corpuscular HGB Conc 32.8 g/dL (31.5-36.5); Mean Corpuscular Volume 78 fL (80-100); Mean Platelet Volume 8.8 fL (9.1-12.4); NEUTROPHILS ABSOLUTE AUTO 8.15 K/mm3 (1.96-9.15); NEUTROPHILS PERCENT AUTO 66 % (41-73); Platelet Count 309 K/mm3 (150-400); RDW Coefficient Variation 14.2 % (11.7-14.2); RDW Standard Deviation 40.4 fL (35.1-46.3); Red Blood Cell Count 3.08 M/mm3 (4.30-5.90); White Blood Cell Count 12.39 K/mm3 (4.00-11.30)
[2023-05-11 05:44] LABS: Albumin, Blood 2.1 g/dL (3.4-5.0); Anion Gap 10 mmol/L (6-16); Blood Urea Nitrogen 35 mg/dL (8-24); Bun/Creatinine Ratio 18.9 (12.0-20.0); CO2, Blood 22 mmol/L (21-32); Calcium, Blood 8.4 mg/dL (8.5-10.1); Chloride, Blood 100 mmol/L (98-108); Creatinine, Blood 1.85 mg/dL (0.60-1.20); Glomerular Filtration Rate 39 (60-); Glucose, Blood 157 mg/dL (70-99); Magnesium, Blood 1.9 mg/dL (1.6-2.4); Phosphorus, Blood 3.3 mg/dL (2.5-4.9); Potassium, Blood 3.4 mmol/L (3.5-5.5); Sodium, Blood 132 mmol/L (136-145)
[2023-05-11 06:25] LABS: Alanine Aminotransfer (ALT/SGP 101 U/L (12-78); Albumin/Globulin Ratio 0.6 (0.8-1.8); Alk Phos 139 U/L (50-136); Aspartate Aminotrans (AST/SGOT 75 U/L (12-37); Bilirubin, Total 0.9 mg/dL (0.1-1.0); Globulin, Blood 3.3 g/dL (2.2-4.0); Total Protein, Blood 5.4 g/dL (6.4-8.2)
[2023-05-11 07:09] VITALS: BP 133/69
[2023-05-11 14:29] LABS: Vancomycin, Trough 15.8 ug/mL (5.0-10.0)
[2023-05-11 14:56] VITALS: BP 126/83
--- NOTE | 2023-05-11 17:26 | NUR ---
THE PATIENT IS A&O X4, FOLLOWS COMMANDS AND IS PLEASENT TO VISIT WITH, THE PATIENT HAD FAMILY VISITING A GOOD PART OF THE SHIFT, AND HAS BEEN UP TO HIS CHAIR FOR ABOUT 5 HOURS, THE PATIEN IS RESTING EATING DINNER, WHILE SITTING UP IN HIS CHAIR, I WILL CONTINUE TO MONITOR HIM.
[2023-05-11 20:48] VITALS: BP 138/76
[2023-05-12 03:29] VITALS: BP 133/77
--- NOTE | 2023-05-12 03:32 | NUR ---
SHIFT SUMMARY ADMITTED FOR CELLULITIS OF RIGHT LEG. FULL CODE. ANTIB RX ARE SCHEDULED. 1500 ML FLUID RESTRICTION. POWERGLIDE IN LUE. RENAL CONSULT IS DR. VALENCIA. ON CARDIAC DIET. TELEMETRY: AFIB @ 92 BPM. MONITORING LABS. HE IS A&O X4. INDEPENDENT-BRP. ON RA. CPAP @ .
[2023-05-12 04:57] LABS: BASOPHILS ABSOLUTE AUTO 0.02 K/mm3 (0.00-0.23); BASOPHILS PERCENT AUTO 0 % (0-2); EOSINOPHILS PERCENT AUTO 0 % (0-6); Hematocrit 23.8 % (37.0-53.0); Hemoglobin 7.8 g/dL (13.5-17.5); IMMATURE GRAN PERCENT AUTO 1 % (0-1); LYMPHOCYTES ABSOLUTE AUTO 3.19 K/mm3 (0.84-5.20); LYMPHOCYTES PERCENT AUTO 23 % (21-46); MONOCYTES ABSOLUTE AUTO 1.14 K/mm3 (0.16-1.47); MONOCYTES PERCENT AUTO 8 % (4-13); Mean Corpuscular HGB 25.7 pg (26.0-34.0); Mean Corpuscular HGB Conc 32.8 g/dL (31.5-36.5); Mean Corpuscular Volume 79 fL (80-100); Mean Platelet Volume 9.2 fL (9.1-12.4); NEUTROPHILS ABSOLUTE AUTO 9.42 K/mm3 (1.96-9.15); NEUTROPHILS PERCENT AUTO 68 % (41-73); Platelet Count 353 K/mm3 (150-400); RDW Coefficient Variation 14.2 % (11.7-14.2); RDW Standard Deviation 40.4 fL (35.1-46.3); Red Blood Cell Count 3.03 M/mm3 (4.30-5.90); White Blood Cell Count 13.87 K/mm3 (4.00-11.30)
[2023-05-12 05:47] LABS: Albumin, Blood 2.3 g/dL (3.4-5.0); Anion Gap 8 mmol/L (6-16); Blood Urea Nitrogen 36 mg/dL (8-24); Bun/Creatinine Ratio 21.6 (12.0-20.0); CO2, Blood 22 mmol/L (21-32); Calcium, Blood 8.8 mg/dL (8.5-10.1); Chloride, Blood 103 mmol/L (98-108); Creatinine, Blood 1.67 mg/dL (0.60-1.20); Glomerular Filtration Rate 45 (60-); Glucose, Blood 142 mg/dL (70-99); Phosphorus, Blood 3.4 mg/dL (2.5-4.9); Potassium, Blood 3.6 mmol/L (3.5-5.5); Sodium, Blood 133 mmol/L (136-145)
[2023-05-12 07:16] VITALS: BP 136/80
[2023-05-12 08:10] LABS: METANEPHRINE, UR 273 ug/L (Undefined)
[2023-05-12 13:10] LABS: IMMUNOGLOBULIN A, QN, SERUM 21 mg/dL (61-437); IMMUNOGLOBULIN G, QN, SERUM 303 mg/dL (603-1613); IMMUNOGLOBULIN M, QN, SERUM 28 mg/dL (20-172)
[2023-05-12 15:29] VITALS: BP 136/83
--- NOTE | 2023-05-12 16:26 | NUR ---
THE PATIENT IS A&O X4, PLEASENT TO VISIT WITH AND FOLLOWS COMMANDS. THE PATIENT HAS WORKED WITH OT/PT TODAY AND HAS BEEN UP TO HIS CHAIR MOST OF THE SHIFT. THE PATIENT SHOWERED THIS MORNING. THE PATIENT IS WATCHING A BASEBALL GAME AT THIS TIME, I WILL CIONTINUE TO MONITOR HIM.
[2023-05-12 19:22] VITALS: BP 122/71
--- NOTE | 2023-05-12 22:28 | NUR ---
CALLED LAB THE ORDERED PROTEIN ELECTROPHORESIS URINE LAB HAS NOW BEEN ADDED ON TO A PREVIOUS URINE COLLECTION THAT WE HAVE PERFORMED, AWAITING RESULTS.
[2023-05-13 02:49] VITALS: BP 123/83
--- NOTE | 2023-05-13 04:02 | NUR ---
SHIFT SUMMARY PATIENT IS A&O X4, CALM AND COOPERATIVE WITH CARE. USED URINAL T/O SHIFT INDEPENDENTLY. CPAP IN USE WHILE ASLEEP. PT REPORTED LEG AND SHOULDER PAIN, TREATED PER EMAR. CURRENTLY ON 1500 L FLUID RESTRICTION AND FOLLOWING. TELE IN PLACE CURRENTLY AFIB WITH A RATE OF 99. NO COMPLAINTS OF CHEST PAIN OR PRESSURE. BED LIGHT KEPT WITHIN REACH WITH BED IN THE LOWEST POSITION.
[2023-05-13 06:33] LABS: Albumin, Blood 2.2 g/dL (3.4-5.0); Albumin/Globulin Ratio 0.6 (0.8-1.8); Bilirubin, Total 0.5 mg/dL (0.1-1.0); Bun/Creatinine Ratio 24.7 (12.0-20.0); C-REACTIVE PROTEIN, EXT RANGE 6.77 mg/dL (0.000-0.300); Calcium, Blood 8.6 mg/dL (8.5-10.1); Creatinine, Blood 1.58 mg/dL (0.60-1.20); Globulin, Blood 3.5 g/dL (2.2-4.0); Magnesium, Blood 1.9 mg/dL (1.6-2.4); Phosphorus, Blood 2.8 mg/dL (2.5-4.9); Potassium, Blood 3.6 mmol/L (3.5-5.5); Total Protein, Blood 5.7 g/dL (6.4-8.2)
[2023-05-13 06:54] LABS: BASOPHILS ABSOLUTE AUTO 0.03 K/mm3 (0.00-0.23); BASOPHILS PERCENT AUTO 0 % (0-2); EOSINOPHILS PERCENT AUTO 0 % (0-6); Hematocrit 25.1 % (37.0-53.0); Hemoglobin 8.3 g/dL (13.5-17.5); IMMATURE GRAN ABSOLUTE AUTO 0.12 K/mm3 (0.00-0.10); IMMATURE GRAN PERCENT AUTO 1 % (0-1); LYMPHOCYTES ABSOLUTE AUTO 4.92 K/mm3 (0.84-5.20); LYMPHOCYTES PERCENT AUTO 38 % (21-46); MONOCYTES ABSOLUTE AUTO 0.95 K/mm3 (0.16-1.47); MONOCYTES PERCENT AUTO 7 % (4-13); Mean Corpuscular HGB Conc 33.1 g/dL (31.5-36.5); Mean Corpuscular Volume 79 fL (80-100); Mean Platelet Volume 8.9 fL (9.1-12.4); NEUTROPHILS ABSOLUTE AUTO 7.11 K/mm3 (1.96-9.15); NEUTROPHILS PERCENT AUTO 54 % (41-73); Platelet Count 371 K/mm3 (150-400); RDW Coefficient Variation 14.2 % (11.7-14.2); RDW Standard Deviation 40.5 fL (35.1-46.3); Red Blood Cell Count 3.19 M/mm3 (4.30-5.90); White Blood Cell Count 13.13 K/mm3 (4.00-11.30)
[2023-05-13 07:08] VITALS: BP 137/80
[2023-05-13 11:11] LABS: DOPAMINE, URINE 61 ug/L (Undefined)
[2023-05-13 16:11] LABS: ANTIMYELOPEROXIDASE (MPO) ABS <0.2 units (0.0-0.9); ANTIPROTEINASE 3 (PR-3) ABS <0.2 units (0.0-0.9); ATYPICAL PANCA <1:20 titer (Neg:<1:20); CYTOPLASMIC (C-ANCA) <1:20 titer (Neg:<1:20); PERINUCLEAR (P-ANCA) <1:20 titer (Neg:<1:20)
[2023-05-13 16:25] VITALS: BP 153/95
--- NOTE | 2023-05-13 16:27 | NUR ---
THE PATIENT IE A&O X4, FOLLOWS COMANDS AND IS INDEPENDENT IN HIS ROOM. THE PATIENT HAS WALWED IN THE HALLS TODAY AND IS GETTING EXCITED BEING CLOSER TO GOING HOME. THE PATIENT IS SITTING IN HIS CHAIR, AND HE AND HIS SPOUSE ARE WATCHING TV AT THIS TIME, I WILL CONTINUE TO MONITOR.
[2023-05-13 19:54] VITALS: BP 157/88
--- NOTE | 2023-05-14 03:57 | NUR ---
SHIFT SUMMARY PT A&O X4, CALM AND COOPERATIVE WITH CARE LOOKING FORWARD TO DISCHARGE. TELEMETRY: AFIB @101, NO COMPLAINTS OF SOB OR CHEST PAIN. NO ACUTE EVENTS OVERNIGHT. CPAP @HS. FLUID RESTRICTION OF 1500 ML/DAY. POWERGLIDE IN LUE. INDEPENDENT IN USING URINAL. SLEPT T/O MOST OF THE NIGHT. CALL LIGHT WITHIN REACH AND BED KEPT IN THE LOWEST POSITION. PT CALLS APPROPRIATELY.
[2023-05-14 04:20] VITALS: BP 142/89
[2023-05-14 05:02] LABS: Hematocrit 26.1 % (37.0-53.0); Hemoglobin 8.3 g/dL (13.5-17.5)
[2023-05-14 05:26] LABS: Albumin, Blood 2.3 g/dL (3.4-5.0); Anion Gap 6 mmol/L (6-16); Blood Urea Nitrogen 38 mg/dL (8-24); Bun/Creatinine Ratio 26.4 (12.0-20.0); CO2, Blood 23 mmol/L (21-32); Calcium, Blood 8.8 mg/dL (8.5-10.1); Chloride, Blood 111 mmol/L (98-108); Creatinine, Blood 1.44 mg/dL (0.60-1.20); Glomerular Filtration Rate 53 (60-); Glucose, Blood 116 mg/dL (70-99); Phosphorus, Blood 2.8 mg/dL (2.5-4.9); Potassium, Blood 4.2 mmol/L (3.5-5.5); Sodium, Blood 140 mmol/L (136-145)
[2023-05-14 05:33] LABS: BASOPHILS ABSOLUTE AUTO 0.03 K/mm3 (0.00-0.23); BASOPHILS PERCENT AUTO 0 % (0-2); EOSINOPHILS PERCENT AUTO 0 % (0-6); IMMATURE GRAN ABSOLUTE AUTO 0.17 K/mm3 (0.00-0.10); IMMATURE GRAN PERCENT AUTO 1 % (0-1); LYMPHOCYTES ABSOLUTE AUTO 4.77 K/mm3 (0.84-5.20); LYMPHOCYTES PERCENT AUTO 39 % (21-46); MONOCYTES ABSOLUTE AUTO 0.82 K/mm3 (0.16-1.47); MONOCYTES PERCENT AUTO 7 % (4-13); Mean Corpuscular HGB Conc 32.6 g/dL (31.5-36.5); Mean Corpuscular Volume 80 fL (80-100); Mean Platelet Volume 8.9 fL (9.1-12.4); NEUTROPHILS ABSOLUTE AUTO 6.38 K/mm3 (1.96-9.15); NEUTROPHILS PERCENT AUTO 53 % (41-73); Platelet Count 397 K/mm3 (150-400); RDW Coefficient Variation 14.3 % (11.7-14.2); RDW Standard Deviation 41.8 fL (35.1-46.3); Red Blood Cell Count 3.23 M/mm3 (4.30-5.90); White Blood Cell Count 12.17 K/mm3 (4.00-11.30)
[2023-05-14 07:07] VITALS: BP 150/91
[2023-05-14] MEDS ORDERED: AMOCLA875 PO (11:58)
[2023-05-14] MEDS ORDERED: Bumetanide2 MG PO (11:58)
[2023-05-14] MEDS ORDERED: DOXY100 PO (12:00)
[2023-05-14] MEDS ORDERED: LABE100 PO (12:00)
[2023-05-14] MEDS ORDERED: LOSA25 PO (12:01)
[2023-05-14] MEDS ORDERED: KLOR-CON 1010 ME9 PO (12:02)
[2023-05-14] MEDS ORDERED: VISBIOME 112.51 EACH PO (12:02)
[2023-05-14] MEDS ORDERED: PRAZ1 PO (12:02)
[2023-05-14] MEDS ORDERED: SODCHL1 PO (12:03)
[2023-05-14] MEDS ORDERED: PRED20 PO (12:07)
[2023-05-14 13:11] LABS: IMMUNOGLOBULIN A, QN, SERUM 19 mg/dL (61-437); IMMUNOGLOBULIN G, QN, SERUM 280 mg/dL (603-1613); IMMUNOGLOBULIN M, QN, SERUM 30 mg/dL (20-172)
--- NOTE | 2023-05-14 14:12 | NUR ---
DISCHARGE NOTE DISCHARGED AT APPROX 1330. PT WAS PROVIDED WITH WRITTEN AND VERBAL INSTRUCTIONS AND REPORTED UNDERSTANDING. PT WAS A&OX4, VSS, PAIN MANAGED, VOIDING, AND TOLERATING PO. BELONGINGS WERE RETURNED AND ESCOURTED OUT VIA W/C BY JULIAN.
[2023-05-15 13:08] LABS: ANTIMYELOPEROXIDASE (MPO) ABS <0.2 units (0.0-0.9); ANTIPROTEINASE 3 (PR-3) ABS <0.2 units (0.0-0.9); ATYPICAL PANCA <1:20 titer (Neg:<1:20); CYTOPLASMIC (C-ANCA) <1:20 titer (Neg:<1:20); PERINUCLEAR (P-ANCA) <1:20 titer (Neg:<1:20)
[2023-05-17 06:08] LABS: METANEPHRINE, PL 46.4 pg/mL (0.0-88.0); NORMETANEPHRINE, PL 154.7 pg/mL (0.0-285.2)
[2023-05-17 11:08] LABS: ALDOS/RENIN RATIO 1.4 (0.0-30.0); ALDOSTERONE 33.6 ng/dL (0.0-30.0)
[2023-05-18 16:09] LABS: M-SPIKE, % Comment: % (Not Observed); PROTEIN,TOTAL,URINE 13.3 mg/dL (Not Estab.)
[2023-05-19 08:12] LABS: METANEPHRINE, PL 27.7 pg/mL (0.0-88.0); NORMETANEPHRINE, PL 45.7 pg/mL (0.0-285.2)
== END 2023-05-14 13:42 | disposition home or self-care (01) | DRG 640 ==
LOC: ER 09:43 → MEDS 14:33
PROVIDERS: Internal Medicine; Internal Medicine Nephrology; Physician Assistant; ADMIT Family Medicine
PROC: 5A09457 Assistance with Respiratory Ventilation, 24-96 Consecutive Hours, Continuous Positive Airway Pressure (ICD-10-PCS; principal; 2023-05-07)
PROC: 3E03329 Introduction of Other Anti-infective into Peripheral Vein, Percutaneous Approach (ICD-10-PCS; 2023-05-08)
DX: E87.6 Hypokalemia (principal); A41.9 Sepsis, unspecified organism; I50.31 Acute diastolic (congestive) heart failure; N17.9 Acute kidney failure, unspecified; L03.115 Cellulitis of right lower limb; N25.81 Secondary hyperparathyroidism of renal origin; I13.0 Hypertensive heart and chronic kidney disease with heart failure and stage 1 through stage 4 chronic kidney disease, or unspecified chronic kidney disease; I48.20 Chronic atrial fibrillation, unspecified; E87.1 Hypo-osmolality and hyponatremia; I25.10 Atherosclerotic heart disease of native coronary artery without angina pectoris; N18.31 Chronic kidney disease, stage 3a; D63.1 Anemia in chronic kidney disease; K21.9 Gastro-esophageal reflux disease without esophagitis; E78.5 Hyperlipidemia, unspecified; N40.0 Benign prostatic hyperplasia without lower urinary tract symptoms; E66.9 Obesity, unspecified; R94.31 Abnormal electrocardiogram [ECG] [EKG]; I49.3 Ventricular premature depolarization; I87.8 Other specified disorders of veins; E88.09 Other disorders of plasma-protein metabolism, not elsewhere classified; Z95.5 Presence of coronary angioplasty implant and graft; Z68.33 Body mass index [BMI] 33.0-33.9, adult; Z79.01 Long term (current) use of anticoagulants; Z79.899 Other long term (current) drug therapy
CPT/HCPCS: 36415; 71250; 73201; 73701; 74176; 76770; 76882; 78452; 80048; 80053; 80069; 80202; 81001; 81050; 82088; 82330; 82384; 82530; 82533; 82550; 82570; 83516; 83520; 83735; 83835; 84100; 84145; 84156; 84166; 84244; 84300; 84443; 84540; 84550; 85014; 85018; 85025; 85651; 86037; 86038; 86140; 86334; 86335; 87040; 93005; 93010; 93017; 93971; 94660; 94760; 94762; 96365; 96366; 96368; 96375; 97110; 97112; 97116; 97162; 97166; 97530; 97535; 99285-25; A9270; A9500; C1751; C8929; J0360; J0612; J0690; J0706; J0881; J1650; J1940; J2543; J2785; J3370; J3475; J3480; J7030; J7040; J7050; J7512; Q9957; Q9967

== ENCOUNTER → 2023-05-22 | Outpatient (CLI) | payer MEDICARE ==
[~2023-05-22] MED LIST: AMOCLA875 PO; ATEN50 PO; ATOR40TA PO; Bumetanide2 MG PO; CHLO25B PO; DOXY100 PO; EZETIMIBE10 M6 PO; KLOR-CON 1010 ME9 PO; LABE100 PO; LOSA25 PO; PANTOPRAZOLE SO2010 PO; PLAVIX75 MG PO; POTA10T PO; PRAZ1 PO; PRED20 PO; Prinivil10 MG PO; SOAANZ20 M3 PO; SODCHL1 PO; SPIRONOLACTONE25 MG PO; VISBIOME 112.51 EACH PO; XARELTO20 M1 PO
[2023-05-22 13:48] LABS: Protein, Urine Quantitative 7.5 mg/dL (0.0-11.9)
[2023-05-22 13:51] LABS: Microalbumin, Urine Quant. 5.96 mg/L (0.000-20.000)
== END ==
LOC: LAB 04:50 → LAB SHORT 04:50 → LAB FUT 05-19 15:15
PROVIDERS: Internal Medicine Nephrology
DX: N18.30 Chronic kidney disease, stage 3 unspecified (principal); D63.1 Anemia in chronic kidney disease; N25.81 Secondary hyperparathyroidism of renal origin; E55.9 Vitamin D deficiency, unspecified; E78.00 Pure hypercholesterolemia, unspecified; R76.9 Abnormal immunological finding in serum, unspecified; R94.5 Abnormal results of liver function studies; R94.6 Abnormal results of thyroid function studies
CPT/HCPCS: 81050; 82043; 82570; 84156

== ENCOUNTER 2024-09-14 09:30 | Inpatient (IN) | payer MEDICARE ==
[~2024-09-14] VITALS: Ht 188 cm; Wt 113.2 kg
[2024-09-14] VITALS (9 sets, daily range): BP systolic 138–180; BP diastolic 75–111
[2024-09-14 13:49] LABS: BASOPHILS ABSOLUTE AUTO 0.04 K/mm3 (0.00-0.23); BASOPHILS PERCENT AUTO 0 % (0-2); EOSINOPHILS PERCENT AUTO 0 % (0-6); Hematocrit 39.4 % (37.0-53.0); Hemoglobin 12.8 g/dL (13.5-17.5); IMMATURE GRAN ABSOLUTE AUTO 0.05 K/mm3 (0.00-0.10); IMMATURE GRAN PERCENT AUTO 0 % (0-1); LYMPHOCYTES PERCENT AUTO 18 % (21-46); MONOCYTES ABSOLUTE AUTO 1.38 K/mm3 (0.16-1.47); MONOCYTES PERCENT AUTO 12 % (4-13); Mean Corpuscular HGB 28.4 pg (26.0-34.0); Mean Corpuscular HGB Conc 32.5 g/dL (31.5-36.5); Mean Corpuscular Volume 88 fL (80-100); Mean Platelet Volume 9.9 fL (9.1-12.4); NEUTROPHILS ABSOLUTE AUTO 8.07 K/mm3 (1.96-9.15); NEUTROPHILS PERCENT AUTO 69 % (41-73); Platelet Count 233 K/mm3 (150-400); RDW Coefficient Variation 14.2 % (11.7-14.2); RDW Standard Deviation 45.4 fL (35.1-46.3); White Blood Cell Count 11.64 K/mm3 (4.00-11.30)
[2024-09-14 14:20] LABS: Albumin, Blood 3.6 g/dL (3.4-5.0); Albumin/Globulin Ratio 1.1 (0.8-1.8); Bilirubin, Total 2.4 mg/dL (0.1-1.0); Bun/Creatinine Ratio 11.7 (12.0-20.0); Calcium, Blood 9.6 mg/dL (8.5-10.1); Creatinine, Blood 1.11 mg/dL (0.60-1.20); Globulin, Blood 3.2 g/dL (2.2-4.0); Potassium, Blood 4.6 mmol/L (3.5-5.5); Total Protein, Blood 6.8 g/dL (6.4-8.2)
[2024-09-14] MEDS ORDERED: NITROGLYCERIN0.4 M3 SL (14:52)
[2024-09-14] MEDS ORDERED: LABE100 PO (14:53)
[2024-09-14] MEDS ORDERED: KLOR-CON 1010 ME9 PO ×2 (15:00→17:11)
[2024-09-14] MEDS ORDERED: FLU VACC TS2024-25(6MOS UP)/PF 45 MCG/0.5 ML SYRINGE IM SCH (17:05)
[2024-09-14] MEDS ORDERED: HydrALAZINE HCl 20 MG / ML 1ML Vial IV PRN (17:10)
[2024-09-14] MEDS ORDERED: DILTIAZEM 24HR360 MG PO (17:12)
[2024-09-14] MEDS ORDERED: BUMETANIDE2 M6 PO (17:12)
[2024-09-14] MEDS ORDERED: Acetaminophen 500 MG Tab PO PRN (17:45)
[2024-09-14] MEDS ORDERED: Morphine Sulfate 4 MG/1 ML Injection IV PRN ×2 (17:45→18:45)
[2024-09-14] MEDS ORDERED: Nitroglycerin/D5W 250 ML IV SCH (18:00)
[2024-09-14] MEDS ORDERED: Spironolactone 25 MG Tab PO SCH (18:00)
[2024-09-14] MEDS ORDERED: Nitroglycerin 1 INCH/GM PKT TOP SCH (18:35)
--- NOTE | 2024-09-14 18:56 | NUR ---
ARRIVAL TO PCU 17 / TRANSFER ICU 1 PT ARRIVED TO PCU 17 AT APPROXIMATELY 1825 WITH PHYSICIAN AT BEDSIDE. PT STOOD AND TRANSFERED FROM [facility] TO HOSPITAL BED IND. PT A&Ox4, COMMUNICATING NEEDS APPROPRIATELY. PT WITH C/O 9/10 CHEST PAIN, EKG DONE UPON ARRIVAL. BP ELEVATED WITH SBP 180's, AFIB 100's. SpO2> 92% RA, ELEVATED RR 20-30's, REPORTS WORK OF BREATHING IS D/T CP NO SOB. NITRO PASTE APPLIED PER EMAR. ORDERS GIVEN AT BEDSIDE FOR TRANSFER TO ICU. PT TRANSFERED VIA HOSPITAL BED BY THIS RN AT APPROXIMATELY 1845. REPORT GIVEN TO MECHANIC WELDER AT BEDSIDE.
[2024-09-14] MEDS ORDERED: NS 250 ML IV PRN (19:00)
[2024-09-14] MEDS ORDERED: Aspirin 81 MG Chew PO ONE (19:25)
[2024-09-14] MEDS ORDERED: Verapamil HCL 2.5 MG/ML 2ML Injection ONE (19:40)
[2024-09-14] MEDS ORDERED: NS 250 ML IV ONE (19:41)
[2024-09-14] MEDS ORDERED: Heparin Sodium 1000 Units/ML 10ML MDV ONE ×2 (19:41→19:59)
[2024-09-14] MEDS ORDERED: Nitroglycerin 2 MG/20 ML BTL ONE (19:41)
[2024-09-14] MEDS ORDERED: NS 1,000 ML IV ONE ×2 (19:41→20:00)
[2024-09-14] MEDS ORDERED: Heparin Sodium 5000 Units/ML 1ML MDV IV ONE (19:50)
[2024-09-14] MEDS ORDERED: Metoprolol Tartrate 1 MG/ML 5 ML VIAL IV ONE (19:55)
[2024-09-14] MEDS ORDERED: Midazolam HCl 1MG / ML 2ML Vial ONE (19:59)
[2024-09-14] MEDS ORDERED: Phenylephrine HCl 100 MCG/ML-NS 10MLSYR (1MG/10ML) ONE (19:59)
[2024-09-14] MEDS ORDERED: FentaNYL Citrate 50 MCG/ML 2 ML Injection ONE (19:59)
[2024-09-14] MEDS ORDERED: Atropine Sulfate 0.1 MG/ML 10ML SYR ONE (20:00)
[2024-09-14] MEDS ORDERED: Furosemide 10 MG / ML 2ML Vial ONE (20:14)
[2024-09-14] MEDS ORDERED: Tirofiban HCL Monohydrate 3.75 MG/15 ML Vial ONE (20:32)
[2024-09-14] MEDS ORDERED: Ticagrelor 90 MG TABLET ONE (20:32)
[2024-09-14 20:41] LABS: International Normalized Ratio 1.34
[2024-09-14 20:42] LABS: Anti-Xa UFH, PHA Monitoring >1.50 IU/mL
[2024-09-14] MEDS ORDERED: dilTIAZem HCL 125 MG in Dextrose 5% 100 ML IV SCH (20:50)
[2024-09-14] MEDS ORDERED: Labetalol HCL 100 MG TAB PO SCH (21:00)
[2024-09-14] MEDS ORDERED: Losartan Potassium 25 MG Tab PO SCH (21:00)
[2024-09-15] VITALS (74 sets, daily range): BP systolic 98–177; BP diastolic 58–112
[2024-09-15 03:36] LABS: BASOPHILS ABSOLUTE AUTO 0.02 K/mm3 (0.00-0.23); BASOPHILS PERCENT AUTO 0 % (0-2); EOSINOPHILS ABSOLUTE AUTO 0.01 K/mm3 (0.00-0.68); EOSINOPHILS PERCENT AUTO 0 % (0-6); Hematocrit 36.1 % (37.0-53.0); Hemoglobin 12.1 g/dL (13.5-17.5); IMMATURE GRAN ABSOLUTE AUTO 0.06 K/mm3 (0.00-0.10); IMMATURE GRAN PERCENT AUTO 1 % (0-1); LYMPHOCYTES ABSOLUTE AUTO 2.21 K/mm3 (0.84-5.20); LYMPHOCYTES PERCENT AUTO 19 % (21-46); MONOCYTES PERCENT AUTO 11 % (4-13); Mean Corpuscular HGB 28.3 pg (26.0-34.0); Mean Corpuscular HGB Conc 33.5 g/dL (31.5-36.5); Mean Corpuscular Volume 85 fL (80-100); Mean Platelet Volume 9.1 fL (9.1-12.4); NEUTROPHILS ABSOLUTE AUTO 8.24 K/mm3 (1.96-9.15); NEUTROPHILS PERCENT AUTO 70 % (41-73); Platelet Count 205 K/mm3 (150-400); RDW Coefficient Variation 14.2 % (11.7-14.2); RDW Standard Deviation 43.8 fL (35.1-46.3); Red Blood Cell Count 4.27 M/mm3 (4.30-5.90); White Blood Cell Count 11.84 K/mm3 (4.00-11.30)
[2024-09-15 03:59] LABS: Albumin, Blood 3.2 g/dL (3.4-5.0); Albumin/Globulin Ratio 1.1 (0.8-1.8); Bilirubin, Total 2.3 mg/dL (0.1-1.0); Bun/Creatinine Ratio 15.3 (12.0-20.0); Calcium, Blood 9.1 mg/dL (8.5-10.1); Creatinine, Blood 0.98 mg/dL (0.60-1.20); Magnesium, Blood 1.8 mg/dL (1.6-2.4); Phosphorus, Blood 3.6 mg/dL (2.5-4.9); Potassium, Blood 3.5 mmol/L (3.5-5.5); Total Protein, Blood 6.2 g/dL (6.4-8.2)
[2024-09-15] MEDS ORDERED: Potassium Chl 20MEQ/Water100ML 100 ML IV SCH (05:55)
[2024-09-15] MEDS ORDERED: Potassium Chloride 20 MEQ TabCR PO ONE (06:00)
[2024-09-15] MEDS ORDERED: Pantoprazole Sodium 20 MG Tab PO SCH (06:00)
[2024-09-15] MEDS ORDERED: Potassium Chloride 40 MEQ in NS 250 ML IV ONE (06:40)
[2024-09-15] MEDS ORDERED: Ticagrelor 90 MG TABLET PO SCH (07:00)
[2024-09-15] MEDS ORDERED: Aspirin 81 MG Chew PO SCH (08:00)
[2024-09-15] MEDS ORDERED: Phenol/Sodium Phenolate Oral Spray 180 ML MM PRN (08:35)
[2024-09-15] MEDS ORDERED: Heparin Sodium,Porcine/0.5 NS 500 ML IV SCH (08:35)
[2024-09-15] MEDS ORDERED: Heparin Sodium 5000 Units/ML 1ML MDV IV ONE (08:35)
[2024-09-15 08:43] LABS: International Normalized Ratio 1.22; Prothrombin Time Results 12.9 Sec (9.7-11.5)
[2024-09-15] MEDS ORDERED: Atorvastatin 40 MG Tab PO SCH (09:00)
[2024-09-15] MEDS ORDERED: Heparin Sodium 5000 Units/ML 1ML MDV SC SCH (09:00)
[2024-09-15] MEDS ORDERED: Bumetanide 0.25 MG/ML 10ML Vial IV ONE (11:35)
--- NOTE | 2024-09-15 15:04 | NUR ---
WHILE DENTAL HYGIENIST WAS ASSESSING PT'S MOUTH, SHE NOTICED A HEMATOMA ON SOFT PALATE APPROXIMATELY THE SIZE OF A DIME. PT STATES HIS THROAT HAS BEEN SORE. CALLED DR. DANG IMMEDIATELY WHO CAME TO BEDSIDE PROMPTLY. HE SPOKE WITH DR. MCARTHUR WHO STOPPED HEPARIN GTT. DR. ACOSTA CONSULTED WELL. PT IS MAINAING AIRWAY ON RA. NO SIGN OF DISTRESS.
--- NOTE | 2024-09-15 17:53 | NUR ---
SUMMARY PT A/O X4, OOB TO CHAIR THIS AM WITHOUT DIFFICULTY. R RADIAL ACCESS SITE HAS BEEN STABLE ALL DAY. DR. MCARTHUR IS GOING TO TAKE PT BACK TO THE TOPOGRAPHICAL FIELD ASSISTANT IN THE AM. REMAINS ON NITRO GTT TO KEEP BP DOWN. TAKING PO MEDS WELL. PT HAD A SORE THROAT THIS AM AND ON INSPECTION HAS A HEMATOMA ON HIS SOFT PALATE AND TONSILS. HEPARIN GTT WAS STOPPED. DR. DANG AND DR. MCARTHUR HAVE BEEN IN CONTACT WITH ENT. PT IS MAINTAINING HIS AIRWAY WITHOUT DIFFICULTY ON RA. USING CALL LIGHT APPROPRIATELY.
[2024-09-15] MEDS ORDERED: Bumetanide 0.25 MG/ML 4ML ViaL IV SCH (18:00)
[2024-09-15] MEDS ORDERED: Bumetanide 0.25 MG/ML 4ML ViaL IV ONE (18:00)
[2024-09-15] MEDS ORDERED: dilTIAZem HCL 60 MG CAP.SR PO SCH (21:00)
--- NOTE | 2024-09-15 22:46 | NUR ---
PT UPDATE: I SPOKE WITH DR MCARTHUR ON THE PHONE ABOUT THE HEPARIN GTT. HE DOES NOT ANTICIPATE TAKING THE PT BACK TO THE TAX MANAGER PUBLIC TOMORROW GIVEN THE CONCERN FOR POTENTIAL AIRWAY COMPROMISE WITH ADDITIONAL BLOOD THINNERS. HE ADVISED TO HOLD THE HEPARIN GTT INDEFINITELY.
[2024-09-16] VITALS (67 sets, daily range): BP systolic 88–196; BP diastolic 40–129
--- NOTE | 2024-09-16 06:41 | NUR ---
SHIFT SUMMARY: PT HAS BEEN PLEASANT AND WITHOUT COMPLAINT THROUGHOUT SHIFT. HE IS ANXIOUS TO GET THE OTHER STENT AND GET OUT THE HOSPITAL TO VISIT HIS MOTHER IN [place]. HIS INSERTION SITE IS SOFT AND HEALING WELL. HE REMOVED THE BANDAGE. HE HAS HAD A PUREWICK IN PLACE WORKING WELL FOR HIM. HE NO LONGER HAS CHEST PAIN, REMAINS ON NITRO GTT FOR BLOOD PRESSURE CONTROL. WHEN AT REST AND UNDISTURBED PTS HEART RATE AND BLOOD PRESSURE ARE WNL. BOTH ARE ELEVATED WHEN PT IS STIMULATED. PT HAD A PERIOD OF TRIGEMINY THIS AM AND CONTINUES WITH MULTIFORM PVCS.
[2024-09-16] MEDS ORDERED: Verapamil HCL 2.5 MG/ML 2ML Injection ONE (08:02)
[2024-09-16] MEDS ORDERED: NS 250 ML IV ONE (08:02)
[2024-09-16] MEDS ORDERED: NS 1,000 ML IV ONE ×2 (08:03→10:00)
[2024-09-16] MEDS ORDERED: Heparin Sodium 1000 Units/ML 10ML MDV ONE ×4 (08:03→12:31)
[2024-09-16] MEDS ORDERED: Nitroglycerin 2 MG/20 ML BTL ONE (08:03)
[2024-09-16 08:43] LABS: BASOPHILS ABSOLUTE AUTO 0.04 K/mm3 (0.00-0.23); BASOPHILS PERCENT AUTO 0 % (0-2); EOSINOPHILS ABSOLUTE AUTO 0.01 K/mm3 (0.00-0.68); EOSINOPHILS PERCENT AUTO 0 % (0-6); Hematocrit 34.5 % (37.0-53.0); Hemoglobin 11.8 g/dL (13.5-17.5); IMMATURE GRAN ABSOLUTE AUTO 0.08 K/mm3 (0.00-0.10); IMMATURE GRAN PERCENT AUTO 1 % (0-1); LYMPHOCYTES PERCENT AUTO 18 % (21-46); MONOCYTES ABSOLUTE AUTO 1.62 K/mm3 (0.16-1.47); MONOCYTES PERCENT AUTO 11 % (4-13); Mean Corpuscular HGB 28.5 pg (26.0-34.0); Mean Corpuscular HGB Conc 34.2 g/dL (31.5-36.5); Mean Corpuscular Volume 83 fL (80-100); Mean Platelet Volume 9.5 fL (9.1-12.4); NEUTROPHILS ABSOLUTE AUTO 10.51 K/mm3 (1.96-9.15); NEUTROPHILS PERCENT AUTO 71 % (41-73); Platelet Count 285 K/mm3 (150-400); RDW Coefficient Variation 14.1 % (11.7-14.2); RDW Standard Deviation 42.9 fL (35.1-46.3); Red Blood Cell Count 4.14 M/mm3 (4.30-5.90); White Blood Cell Count 14.86 K/mm3 (4.00-11.30)
[2024-09-16] MEDS ORDERED: Losartan Potassium 25 MG Tab PO SCH (09:00)
[2024-09-16 09:03] LABS: Albumin, Blood 3.2 g/dL (3.4-5.0); Anion Gap 12 mmol/L (3-11); Blood Urea Nitrogen 15 mg/dL (8-24); Bun/Creatinine Ratio 14.6 (12.0-20.0); CO2, Blood 21 mmol/L (21-32); Calcium, Blood 9.2 mg/dL (8.5-10.1); Chloride, Blood 106 mmol/L (98-108); Creatinine, Blood 1.03 mg/dL (0.60-1.20); Glomerular Filtration Rate 79 (60-); Glucose, Blood 119 mg/dL (70-99); Phosphorus, Blood 2.6 mg/dL (2.5-4.9); Potassium, Blood 3.7 mmol/L (3.5-5.5); Sodium, Blood 135 mmol/L (136-145)
--- NOTE | 2024-09-16 09:54 | NUR ---
PT A/O X4. DENIES CP OR SOB. OOB TO CHAIR, STEADY GAIT. OFF NITRO GTT. TAKEN TO VETERINARY LABORATORY DIAGNOSTICIAN NOW WITH VETERINARY LABORATORY DIAGNOSTICIAN RN X2. HEMATOMA TO SOFT PALATE APPEARS UNCHANGED TO THIS RN SINCE END OF SHIFT YESTERDAY. PT STATES HIS THROAT IS LESS SORE TODAY. MAINTAINING AIRWAY ON RA.
[2024-09-16] MEDS ORDERED: FentaNYL Citrate 50 MCG/ML 2 ML Injection ONE ×2 (10:00→12:47)
[2024-09-16] MEDS ORDERED: Midazolam HCl 1MG / ML 2ML Vial ONE (10:00)
[2024-09-16] MEDS ORDERED: NS 500 ML IV ONE (12:34)
[2024-09-16] MEDS ORDERED: NS 600 ML IV SCH (13:20)
--- NOTE | 2024-09-16 13:20 | NUR ---
PT BACK FROM TANK FARM OPERATOR. TR BAND TO R RADIAL WITH ARM BOARD IN PLACE. TANK FARM OPERATOR RN REPORTS 12ML OF AIR IN BAND. HAND IS WARM AND PINK. SPO2 ON R INDEX FINGER READING MID 90'S. A/O X4, DENIES CP.
--- NOTE | 2024-09-16 16:32 | NUR ---
CAME IN TO ROOM AT 1530 TO CHECK TR BAND TO START TO DEFLATE. DR. MCARTHUR AT BEDSIDE EDUCATING PT AND ABOUT DISCHARGE AND MEDICATION REGIMEN. AFTER EDUCATION COMPLETE AT 1555 CHECK SITE AND NOTICED SWELLING ABOVE TR BAND. WHILE GATHERING SUPPLIES FOR DR. MCARTHUR TO APPLY MORE PRESSURE, THE SWELLING EXTENDED TO BACK OF THE FA. DR. MCARTHUR INSTRUCTED TO PLACE MANUAL BP CUFF ABOVE TR BAND AND INFLATE TO 100MM. INSTRUCTED TO LEAVE IT IN PLACE FOR 15 MINUTES THEN SLOWLY DEFLATE BY 10MM WITH THE TR BAND EVERY 10-15 MINUTES. HAND IS DUSKY, SPO2 ON R INDEX FINGER STILL READS MID 90'S WITH GOOD PLETH, STRONG RADIAL PULSE. PT NEEDS FREQUENT EDUCATION TO NOT USE R HAND OR ARM EVEN WITH RN AND MD AT BEDSIDE.
--- NOTE | 2024-09-16 19:47 | NUR ---
SUMMARY PT WENT TO INSPECTOR CHIEF THIS AM. GOT 2 STENTS. PT CAME BACK WITH TR BAND TO R RADIAL. SITE WAS STABLE UNTIL IT WAS CLOSE TO THE 2 HOUR TIME TO DEFLATE THE TR BAND. FORMED A HEMATOMA ABOVE THE TR BAND. SEE PREVIOUS NOTE. ABLE TO GET SITE STABLE AGAIN AND BEGAN DEFLATING THE TR BAND WITHOUT ISSUE. HAND IS PINK AND WARM AND SPO2 PROBE TO R INDEX FINGER HAS GOOD PLETH READING MID 90'S. PT NEEDS FREQUENT REMINDING TO NOT USE R ARM AND CONTINUES TO USE R ARM DESPITE FREQUENT REMINDING. TR BAND IS CLOSE TO BEING COMPLETELY DEFLATED. NO SIGN OF DISTRESS.
[2024-09-17] VITALS (23 sets, daily range): BP systolic 110–199; BP diastolic 57–143
[2024-09-17 04:22] LABS: BASOPHILS ABSOLUTE AUTO 0.04 K/mm3 (0.00-0.23); BASOPHILS PERCENT AUTO 0 % (0-2); EOSINOPHILS ABSOLUTE AUTO 0.01 K/mm3 (0.00-0.68); EOSINOPHILS PERCENT AUTO 0 % (0-6); Hematocrit 34.5 % (37.0-53.0); Hemoglobin 11.8 g/dL (13.5-17.5); IMMATURE GRAN ABSOLUTE AUTO 0.07 K/mm3 (0.00-0.10); IMMATURE GRAN PERCENT AUTO 1 % (0-1); LYMPHOCYTES ABSOLUTE AUTO 2.15 K/mm3 (0.84-5.20); LYMPHOCYTES PERCENT AUTO 15 % (21-46); MONOCYTES ABSOLUTE AUTO 1.86 K/mm3 (0.16-1.47); MONOCYTES PERCENT AUTO 13 % (4-13); Mean Corpuscular HGB 28.6 pg (26.0-34.0); Mean Corpuscular HGB Conc 34.2 g/dL (31.5-36.5); Mean Corpuscular Volume 84 fL (80-100); Mean Platelet Volume 9.8 fL (9.1-12.4); NEUTROPHILS ABSOLUTE AUTO 10.65 K/mm3 (1.96-9.15); NEUTROPHILS PERCENT AUTO 72 % (41-73); Platelet Count 260 K/mm3 (150-400); RDW Coefficient Variation 14.3 % (11.7-14.2); RDW Standard Deviation 43.4 fL (35.1-46.3); Red Blood Cell Count 4.13 M/mm3 (4.30-5.90); White Blood Cell Count 14.78 K/mm3 (4.00-11.30)
[2024-09-17 04:50] LABS: Albumin, Blood 3.1 g/dL (3.4-5.0); Anion Gap 13 mmol/L (3-11); Blood Urea Nitrogen 16 mg/dL (8-24); Bun/Creatinine Ratio 15.4 (12.0-20.0); CO2, Blood 19 mmol/L (21-32); Calcium, Blood 8.9 mg/dL (8.5-10.1); Chloride, Blood 105 mmol/L (98-108); Creatinine, Blood 1.04 mg/dL (0.60-1.20); Glomerular Filtration Rate 78 (60-); Glucose, Blood 112 mg/dL (70-99); Phosphorus, Blood 2.7 mg/dL (2.5-4.9); Potassium, Blood 4.2 mmol/L (3.5-5.5); Sodium, Blood 133 mmol/L (136-145)
--- NOTE | 2024-09-17 05:19 | NUR ---
SHIFT SUMMARY: Pts TR band was removed without further issue. Arm board was placed after. Pt still seems to be very stressed about getting out of the hospital. He was coached on his breathing and reassured about his current status and the care we'd provide for him. Despite efforts and medication patients blood pressure remained elevated for most of shift. He was in a trigeminy for most of the shift as well. Pt denied chest pain or pain otherwise.
[2024-09-17] MEDS ORDERED: dilTIAZem HCL 90 MG CAP.ER.12H PO SCH (07:00)
[2024-09-17] MEDS ORDERED: Bumetanide 1 MG Tab PO SCH (07:00)
[2024-09-17] MEDS ORDERED: Mag Sulfate 1 GM/D5% 100ML 100 ML IV STA (09:13)
[2024-09-17 10:09] LABS: Thyroid Stimulating Hormone 1.92 uIU/mL (0.360-4.800); Uric Acid, Blood 6.2 mg/dL (3.5-7.2)
[2024-09-17] MEDS ORDERED: CloNIDine 0.1 MG Tab PO SCH (14:00)
--- NOTE | 2024-09-17 18:32 | NUR ---
SUMMARY PT A/O X4. OOB TO CHAIR MOST OF THE DAY. R RADIAL ACCESS SITE IS STABLE AND HAS ARM BOARD IN PLACE. PT HAS BEEN MUCH BETTER TODAY ABOUT NOT USING HIS R ARM. BP MEDS ADJUSTED AND BP HAS BEEN BETTER MANAGED. DR. VALENCIA CONSULTED TODAY AND MAKING ADJUSTMENTS. NO ACUTE CHANGES, DOWNGRADED TO PCU STATUS.
[2024-09-17] MEDS ORDERED: Clopidogrel Bisulfate 300 MG Cap PO ONE (20:00)
[2024-09-17] MEDS ORDERED: N-Acetylcysteine 600 MG CAP PO SCH (21:00)
[2024-09-17] MEDS ORDERED: Labetalol HCL 100 MG TAB PO SCH (21:00)
[2024-09-17] MEDS ORDERED: Losartan Potassium 25 MG Tab PO SCH (21:00)
[2024-09-18] VITALS (24 sets, daily range): BP systolic 72–154; BP diastolic 48–132
[2024-09-18] MEDS ORDERED: NS 250 ML IV ONE (02:50)
[2024-09-18 03:43] LABS: Hematocrit 26.7 % (37.0-53.0); Hemoglobin 9.2 g/dL (13.5-17.5)
[2024-09-18 04:33] LABS: Albumin, Blood 2.6 g/dL (3.4-5.0); Anion Gap 14 mmol/L (3-11); Blood Urea Nitrogen 32 mg/dL (8-24); CO2, Blood 19 mmol/L (21-32); Calcium, Blood 8.4 mg/dL (8.5-10.1); Chloride, Blood 100 mmol/L (98-108); Creatinine, Blood 2.46 mg/dL (0.60-1.20); Glomerular Filtration Rate 28 (60-); Glucose, Blood 114 mg/dL (70-99); Magnesium, Blood 1.9 mg/dL (1.6-2.4); Phosphorus, Blood 4.2 mg/dL (2.5-4.9); Potassium, Blood 3.8 mmol/L (3.5-5.5); Sodium, Blood 129 mmol/L (136-145); Uric Acid, Blood 7.2 mg/dL (3.5-7.2)
--- NOTE | 2024-09-18 05:27 | NUR ---
SHIFT SUMMARY NO ACUTE EVENTS, PT SLEPT WELL T/O MOST OF SHIFT. PT AOX4 AND COOPERATIVE W/ CARE. DENIES CP/SOB. PT ON ROOM AIR AND MAINTAINING GOOD O2 SATS, >95%. PT HR AFIB 70S-80S. BP SOFT DURING SHIFT, PROVIDER CONTACTED AND 250ML BOLUS GIVEN W/ LITTLE EFFECT. PT ASYMPTOMATIC. PROVIDER STS TO CALL IF SYMPTOMS APPEAR/ MAP LESS THAN 50. PT USING URINAL INDEPENDENTLY- 24HR URINE COLLECTION IN PROGRESS. PT HAD TEMP DURING SHIFT, TMAX 100.2- TREATED W/ PRN TYLENOL. ARM BAND REMAINS IN PLACE TO R. RADIAL SITE. HEMATOMA UNCHANGED. LIMB REMAINS TENDER/STIFF. PT IV PATENT AND SALINE LOCKED. PLAN OF CARE ONGOING.
[2024-09-18] MEDS ORDERED: Diltiazem HCl 180 MG Cap.CD PO SCH (06:00)
[2024-09-18] MEDS ORDERED: Clopidogrel Bisulfate 300 MG Cap PO ONE (08:00)
[2024-09-18] MEDS ORDERED: Spironolactone 12.5 MG TAB PO SCH (09:00)
[2024-09-18] MEDS ORDERED: Spironolactone 25 MG Tab PO SCH (09:00)
[2024-09-18] MEDS ORDERED: Losartan Potassium 25 MG Tab PO SCH (09:00)
[2024-09-18] MEDS ORDERED: Bumetanide 1 MG Tab PO SCH ×2 (09:00)
[2024-09-18] MEDS ORDERED: NS 500 ML IV ONE ×2 (11:09→11:15)
[2024-09-18] MEDS ORDERED: NS 1,000 ML BAG IR ONE (11:10)
--- NOTE | 2024-09-18 11:27 | NUR ---
Notified Dr. Wiggins of pt BP and feeling "light headed". Verbal orders for 500ml NS bolus and H/H now. Pt assisted to bed. Bladder scan performed per verbal orders = 270ml. Pt denies need to urinate, denies discomfort.
[2024-09-18 11:37] LABS: Hematocrit 27.9 % (37.0-53.0); Hemoglobin 9.4 g/dL (13.5-17.5)
[2024-09-18 14:04] LABS: Protein, Urine Quantitative 31.8 mg/dL (0.0-11.9)
[2024-09-18 14:38] LABS: Hematocrit 27.7 % (37.0-53.0); Hemoglobin 9.4 g/dL (13.5-17.5)
[2024-09-18] MEDS ORDERED: Docusate Sodium/Senna 1 Tab PO PRN (14:50)
[2024-09-18] MEDS ORDERED: Polyethylene Glycol 3350 17 gm PO PRN (14:50)
[2024-09-18] MEDS ORDERED: Sodium Bicarbonate 650 MG Tab PO STA (20:22)
--- NOTE | 2024-09-18 21:01 | NUR ---
ASSUMPTION OF CARE AT 1900 PT RESTING IN CHAIR IN ROOM, WATCHING TV. ALERT/ORIENTED AND PLEASANT W/ CARE. PT DENIES CP OR SOB. USING URINAL INDEPENDENTLY IN CHAIR. ON ROOM AIR MAINTAINING GOOD ADEQUATE SATURATIONS. A FEBRILE. BP STABLE, AFIB ON MONITOR, LOW 100S. PT TAKES PO MEDS W/ OUT INCIDENT. CALL LIGHT W/ IN REACH- STS WILL CALL WHEN HE IS READY TO TRANFER TO BED. DENIES FURTHER NEEDS AT THIS TIME.
[2024-09-19] VITALS (19 sets, daily range): BP systolic 110–171; BP diastolic 63–96
[2024-09-19 03:40] LABS: Hematocrit 26.2 % (37.0-53.0); Hemoglobin 9.2 g/dL (13.5-17.5)
[2024-09-19 04:05] LABS: Albumin, Blood 2.8 g/dL (3.4-5.0); Anion Gap 15 mmol/L (3-11); Blood Urea Nitrogen 42 mg/dL (8-24); Bun/Creatinine Ratio 20.8 (12.0-20.0); CO2, Blood 17 mmol/L (21-32); Calcium, Blood 8.2 mg/dL (8.5-10.1); Chloride, Blood 100 mmol/L (98-108); Creatinine, Blood 2.02 mg/dL (0.60-1.20); Glomerular Filtration Rate 35 (60-); Glucose, Blood 106 mg/dL (70-99); Magnesium, Blood 2.2 mg/dL (1.6-2.4); Phosphorus, Blood 4.2 mg/dL (2.5-4.9); Sodium, Blood 128 mmol/L (136-145)
--- NOTE | 2024-09-19 06:16 | NUR ---
SHIFT SUMMARY NO ACUTE EVENTS OVERNIGHT. PT SLEPT FOR MOST OF SHIFT WEARING HOME CPAP. PT CALLS APPROPRIATELY FOR NEEDS. HR 90-100S, AFIB. BP STABLE- SYSTOLICS 130-140S. USED URINAL INDEPENDENTLY W/ GOOD OUTPUT. NO BM THIS SHIFT. AFEBRILE. IV PATENT AND SALINE LOCKED. PLAN OF CARE ONGOING
[2024-09-19] MEDS ORDERED: Sodium Bicarbonate 650 MG Tab PO SCH (09:00)
[2024-09-19] MEDS ORDERED: Clopidogrel Bisulfate 75 MG Tab PO SCH (09:00)
[2024-09-19] MEDS ORDERED: Apixaban 5 MG Tab PO SCH (09:30)
[2024-09-19 11:48] LABS: BASOPHILS ABSOLUTE AUTO 0.02 K/mm3 (0.00-0.23); BASOPHILS PERCENT AUTO 0 % (0-2); EOSINOPHILS PERCENT AUTO 0 % (0-6); Hematocrit 30.6 % (37.0-53.0); Hemoglobin 10.2 g/dL (13.5-17.5); IMMATURE GRAN ABSOLUTE AUTO 0.06 K/mm3 (0.00-0.10); IMMATURE GRAN PERCENT AUTO 1 % (0-1); LYMPHOCYTES ABSOLUTE AUTO 1.92 K/mm3 (0.84-5.20); LYMPHOCYTES PERCENT AUTO 15 % (21-46); MONOCYTES ABSOLUTE AUTO 1.62 K/mm3 (0.16-1.47); MONOCYTES PERCENT AUTO 12 % (4-13); Mean Corpuscular HGB 27.8 pg (26.0-34.0); Mean Corpuscular HGB Conc 33.3 g/dL (31.5-36.5); Mean Corpuscular Volume 83 fL (80-100); Mean Platelet Volume 9.6 fL (9.1-12.4); NEUTROPHILS ABSOLUTE AUTO 9.46 K/mm3 (1.96-9.15); NEUTROPHILS PERCENT AUTO 72 % (41-73); Platelet Count 294 K/mm3 (150-400); RDW Coefficient Variation 14.3 % (11.7-14.2); RDW Standard Deviation 43.8 fL (35.1-46.3); Red Blood Cell Count 3.67 M/mm3 (4.30-5.90); White Blood Cell Count 13.08 K/mm3 (4.00-11.30)
--- NOTE | 2024-09-19 12:09 | NUR ---
DISCUSSED NEED FOR BP MEDICATION ADJUSTMENT WITH DR. MCARTHUR AT BEDSIDE - HE DEFERS TO DR. VALENCIA FOR BP MEDICATION ADJUSTMENT. SPOKE WITH DR. VALENCIA VIA TELEPHONE FOR MEDICATION ADJUSTMENTS. LABETALOL DECREASED FROM 200 TO 100 MG BID, CLONIDINE DECREASED FROM TID TO BID, COZAAR DECREASED TO ONCE DAILY. AFTER EXTENSIVE DISCUSSION WITH DR. CASTILLO, ULTIMATELY CLONIDINE WAS DISCONTINUED. ALDACTONE AND BUMEX HELD TODAY FOR PRESSURES. LOSARTAN HELD TODAY WELL. THE PRIMARY CONCERN BEING SYMPTOMATIC HYPOTENSIVE EPISODES FOLLOWING AM BP MEDICATION REGIMEN REQUIRING FLUID BOLUS TO RECOVER. ELIQUIS STARTED TODAY 5MG BID. ALL CURRENT BRUISING/HEMATOMAS DOCUMENTED AND PT EDUCATED ON S/S OF BLEEDING. PT RECEIVED CARDIZEM AND LABETALOL PER EMAR THIS MORNING. ALL OTHER BP MEDS HELD PER CLINICAL JUDGEMENT. URINE OUTPUT GREATLY IMPROVED. CONCERN FOR SWELLING, ERYTHEMA, TENDERNESS TO RUE. ARTERIAL US ORDERD PER DR. MARTINS. CBC ORDERED PER DR. CASTILLO. TYLENOL GIVEN FOR EXTREMITY DISCOMFORT.
[2024-09-19] MEDS ORDERED: Bumetanide 0.25 MG/ML 4ML ViaL IV ONE (12:40)
--- NOTE | 2024-09-19 18:46 | NUR ---
DR. WILLIS AT BEDSIDE. FACE TO FACE NOTIFICATION OF CRITICAL TROPONIN LEVEL OF 6,[phone].
--- NOTE | 2024-09-19 19:00 | NUR ---
BP MEDICATIONS ADJUSTED WITH DR. VALENCIA AND DR. CASTILLO. MRSA SWAB TO NARE COLLECTED. VIBRAMYCIN ORDERED PER DR. CASTILLO FOR COVERAGE OF POTENTIAL INFECTION TO RIGHT EXTREMITY/HAND. PT AMBULATORY AND INDEPENDENT. VS WITHIN PARAMETERS. SAFETY, COMFORT, HYGIENE ADDRESSED.
[2024-09-19] MEDS ORDERED: Doxycycline Hyclate 100 MG TAB PO SCH (21:00)
--- NOTE | 2024-09-19 23:54 | NUR ---
ASSUMPTION OF CARE PT SITTING UP IN CHAIR. AWAKE AND ALERT AND ORIENTED TO ALL. HR A FIB TRIGEMENY WITH STABLE TO ELEVATED BP SBP 150. O2 SAT 98% ON RA. NO CHEST PAIN/PRESSURE, SOB, AB PAIN. PT INDEPENDENT SANS HELP WITH CORDS. PT WILL USE HOME CPAP WHEN SLEEPING. PT WANTS TO SLEEP TONIGHT. CALL LIGHT HANDY.
[2024-09-20] VITALS (11 sets, daily range): BP systolic 105–167; BP diastolic 63–94
[2024-09-20 03:50] LABS: BASOPHILS ABSOLUTE AUTO 0.03 K/mm3 (0.00-0.23); BASOPHILS PERCENT AUTO 0 % (0-2); EOSINOPHILS PERCENT AUTO 0 % (0-6); Hematocrit 28.3 % (37.0-53.0); Hemoglobin 9.6 g/dL (13.5-17.5); IMMATURE GRAN ABSOLUTE AUTO 0.03 K/mm3 (0.00-0.10); IMMATURE GRAN PERCENT AUTO 0 % (0-1); LYMPHOCYTES ABSOLUTE AUTO 2.43 K/mm3 (0.84-5.20); LYMPHOCYTES PERCENT AUTO 26 % (21-46); MONOCYTES ABSOLUTE AUTO 1.22 K/mm3 (0.16-1.47); MONOCYTES PERCENT AUTO 13 % (4-13); Mean Corpuscular HGB 28.4 pg (26.0-34.0); Mean Corpuscular HGB Conc 33.9 g/dL (31.5-36.5); Mean Corpuscular Volume 84 fL (80-100); Mean Platelet Volume 9.8 fL (9.1-12.4); NEUTROPHILS ABSOLUTE AUTO 5.63 K/mm3 (1.96-9.15); NEUTROPHILS PERCENT AUTO 60 % (41-73); Platelet Count 248 K/mm3 (150-400); RDW Coefficient Variation 14.1 % (11.7-14.2); Red Blood Cell Count 3.38 M/mm3 (4.30-5.90); White Blood Cell Count 9.34 K/mm3 (4.00-11.30)
[2024-09-20 04:24] LABS: Albumin, Blood 2.9 g/dL (3.4-5.0); Albumin/Globulin Ratio 0.9 (0.8-1.8); Bun/Creatinine Ratio 26.6 (12.0-20.0); Calcium, Blood 8.8 mg/dL (8.5-10.1); Creatinine, Blood 1.24 mg/dL (0.60-1.20); Globulin, Blood 3.4 g/dL (2.2-4.0); Magnesium, Blood 2.3 mg/dL (1.6-2.4); Phosphorus, Blood 3.5 mg/dL (2.5-4.9); Total Protein, Blood 6.3 g/dL (6.4-8.2)
--- NOTE | 2024-09-20 08:13 | NUR ---
PT LYING IN BED, TRYING TO SLEEP. AWAKE AND ALERT AND ORIENTED TO ALL. HR A FIB CONTROLLED RATE IN 90'S WITH STABLE TO ELEVATED BP SBP 140-160. PT'S BP MEDICATIONS WERE ADJUSTED DUE TO PT BP DECREASING SHORTLY AFTER EACH 0900 AND 2100 MED PASS. THIS INFO WAS PASSED ON TO DAY NURSE, ALTAGRACIA, WHO EXPRESSED SOME CONCERN WITH THE AMOUNT OF BP LOWERING MEDICATIONS THE PATIENT WOULD RECEIVE ACCORDING TO THE NOV. O2 SAT 98% ON RA. NO CHEST PAIN/PRESSURE, SOB, AB PAIN. PT INDEPENDENT SANS HELP WITH CORDS. PT USED HOME CPAP WHEN SLEEPING. CALL LIGHT HANDY.
[2024-09-20] MEDS ORDERED: Labetalol HCL 100 MG TAB PO SCH (09:00)
[2024-09-20] MEDS ORDERED: Spironolactone 12.5 MG TAB PO SCH (09:00)
[2024-09-20] MEDS ORDERED: Losartan Potassium 25 MG Tab PO SCH (09:00)
--- NOTE | 2024-09-20 14:00 | NUR ---
Approcahed Saqib whilst he was preparing to discharge. Pt was conversational and welcoming. This ornament stitcher and Ankit (onboarding ornament stitcher) reflected upon the Pt's family history. Pt displayed evidence of being heard and encouraged. The Pt welcomed prayer. Prayed with patient and departed. THIS HOISTING PILE DRIVING ENGINEER AFFIRMS victorino RIVERA
[2024-09-20] MEDS ORDERED: BUME1 PO (14:06)
[2024-09-20] MEDS ORDERED: LOSA25 PO (14:10)
[2024-09-20] MEDS ORDERED: SPIRONOLACTONE25 MG PO (14:14)
[2024-09-20] MEDS ORDERED: ELIQUIS5 M2 PO (14:16)
[2024-09-20] MEDS ORDERED: ACET500 PO (14:16)
[2024-09-20] MEDS ORDERED: ASPI81CH PO (14:17)
[2024-09-20] MEDS ORDERED: ATOR40TA PO (14:18)
[2024-09-20] MEDS ORDERED: CLOP75 PO (14:19)
[2024-09-20] MEDS ORDERED: ARANESP25 MCG/0.1 SC (14:20)
[2024-09-20] MEDS ORDERED: DOXY100 PO (14:23)
[2024-09-20] MEDS ORDERED: Chloraseptic177 ML MM (14:24)
[2024-09-20] MEDS ORDERED: SODBIC650 PO (14:25)
[2024-09-20] MEDS ORDERED: MIRALAX17 GM PO (14:25)
--- NOTE | 2024-09-20 15:31 | NUR ---
PATIENT CLEARED FOR DISCHARGE BY PHYSICIANS. D/C MED REC HAS BEEN COMPLETED AND FAXED OVER TO PATIENT'S PHARMACY. DISCHARGE INSTRUCTIONS AND FOLLOW UP APPOINTS DISCUSSED WITH PATIENT AND ALL QUESTIONS ANSWERED. IV REMOVED. PATIENT DRESSED AND ASSISTED TO RIDE HOME VIA WHEELCHAIR. ALL BELONGINGS SENT HOME WITH PATIENT.
[2024-09-21 09:17] LABS: CREATININE, URINE - PER VOLUME 106 mg/dL; HOURS COLLECTED Not Provided hr; TOTAL VOLUME 300 mL; VANILLYLMANDELIC ACID -PER VOL 9.7 mg/L; VANILLYLMANDELIC ACID -RAT CRT 9 mg/gCR (0-6)
[2024-09-23 08:44] LABS: ALDOSTERONE/RENINACTIVITY CALC 0.4 ratio (<=25.0)
[2024-09-24 08:26] LABS: CREATININE,URINE - PER VOLUME 106 mg/dL; HOURS COLLECTED Not Provided hr; METANEPHRINE,UR - RATIO TO CRT 366 ug/g CRT (0-300); METANEPHRINE,URN - PER VOLUME 388 ug/L; NORMETANEPHRINE,U - PER VOLUME 1159 ug/L; NORMETANEPHRINE,URN/CRT RATIO 1093 ug/g CRT (0-400); TOTAL VOLUME 300 mL
[2024-09-24 09:23] LABS: CORTISOL, FREE BY ED/LC-MS/MS 5.64 ug/dL
== END 2024-09-20 15:45 | disposition home or self-care (01) | DRG 324 ==
LOC: ER 09:30 → PCU 18:37 → ICUE 18:37 → PCU 18:39 → ICUE 18:40
PROVIDERS: Emergency Medicine; Family Medicine; Internal Medicine Nephrology; Student in an Organized Health Care Education/Training Program; ADMIT Family Medicine
PROC: 02F03ZZ Fragmentation in Coronary Artery, One Artery, Percutaneous Approach (ICD-10-PCS; principal; 2024-09-14)
PROC: 027136Z Dilation of Coronary Artery, Two Arteries with Three Drug-eluting Intraluminal Devices, Percutaneous Approach (ICD-10-PCS; 2024-09-14)
PROC: B240ZZ3 Ultrasonography of Single Coronary Artery, Intravascular (ICD-10-PCS; 2024-09-14)
PROC: 4A023N7 Measurement of Cardiac Sampling and Pressure, Left Heart, Percutaneous Approach (ICD-10-PCS; 2024-09-14)
PROC: B2111ZZ Fluoroscopy of Multiple Coronary Arteries using Low Osmolar Contrast (ICD-10-PCS; 2024-09-14)
PROC: 5A09357 Assistance with Respiratory Ventilation, Less than 24 Consecutive Hours, Continuous Positive Airway Pressure (ICD-10-PCS; 2024-09-18)
DX: I21.4 Non-ST elevation (NSTEMI) myocardial infarction (principal); I50.32 Chronic diastolic (congestive) heart failure; I13.0 Hypertensive heart and chronic kidney disease with heart failure and stage 1 through stage 4 chronic kidney disease, or unspecified chronic kidney disease; N25.81 Secondary hyperparathyroidism of renal origin; E87.1 Hypo-osmolality and hyponatremia; E87.20 Acidosis, unspecified; I16.1 Hypertensive emergency; N17.9 Acute kidney failure, unspecified; L03.113 Cellulitis of right upper limb; T82.855A Stenosis of coronary artery stent, initial encounter; I25.110 Atherosclerotic heart disease of native coronary artery with unstable angina pectoris; E66.3 Overweight; Z68.30 Body mass index [BMI] 30.0-30.9, adult; I48.0 Paroxysmal atrial fibrillation; E78.5 Hyperlipidemia, unspecified; N18.31 Chronic kidney disease, stage 3a; K21.9 Gastro-esophageal reflux disease without esophagitis; N40.0 Benign prostatic hyperplasia without lower urinary tract symptoms; S10.0XXA Contusion of throat, initial encounter; I45.10 Unspecified right bundle-branch block; Z79.01 Long term (current) use of anticoagulants; Z95.5 Presence of coronary angioplasty implant and graft; X58.XXXA Exposure to other specified factors, initial encounter; Z79.82 Long term (current) use of aspirin; Z79.899 Other long term (current) drug therapy; Z79.4 Long term (current) use of insulin
CPT/HCPCS: 36415; 71046; 74176; 76937; 80053; 80069; 82088; 82530; 82533; 82550; 82565; 83735; 83835; 83880; 84100; 84156; 84244; 84443; 84484; 84550; 84585; 85014; 85018; 85025; 85347; 85520; 85610; 85730; 92972; 92978; 93005; 93010; 93306; 93454; 93458; 93571; 93572; 93931; 93975; 94762; 99152; 99153; 99285-25; A9270; C1725; C1753; C1761; C1769; C1874; C1887; C1894; C9600; J0360; J0461; J1644; J1940; J2250; J2270; J2371; J3010; J3246; J3475; J3480; J7030; J7040; J7050; Q9967

== ENCOUNTER 2025-03-24 20:23 | Emergency (ER) | payer MEDICARE ==
[~2025-03-24] VITALS: Ht 188 cm; Wt 108.9 kg
[~2025-03-24 20:23] MED LIST changes: +ACET500 PO; +ARANESP25 MCG/0.1 SC; +ASPI81CH PO; +BUME1 PO; +BUMETANIDE2 M6 PO; +CLOP75 PO; +Chloraseptic177 ML MM; +DILTIAZEM 24HR360 MG PO; +ELIQUIS5 M2 PO; +MIRALAX17 GM PO; +NITROGLYCERIN0.4 M3 SL; +SODBIC650 PO
[2025-03-24 21:28] LABS: BASOPHILS ABSOLUTE AUTO 0.04 K/mm3 (0.00-0.23); BASOPHILS PERCENT AUTO 0 % (0-2); EOSINOPHILS ABSOLUTE AUTO 0.01 K/mm3 (0.00-0.68); EOSINOPHILS PERCENT AUTO 0 % (0-6); Hematocrit 43.5 % (37.0-53.0); Hemoglobin 14.6 g/dL (13.5-17.5); IMMATURE GRAN ABSOLUTE AUTO 0.05 K/mm3 (0.00-0.10); IMMATURE GRAN PERCENT AUTO 0 % (0-1); LYMPHOCYTES ABSOLUTE AUTO 2.71 K/mm3 (0.84-5.20); LYMPHOCYTES PERCENT AUTO 19 % (21-46); MONOCYTES ABSOLUTE AUTO 0.57 K/mm3 (0.16-1.47); MONOCYTES PERCENT AUTO 4 % (4-13); Mean Corpuscular HGB Conc 33.6 g/dL (31.5-36.5); Mean Corpuscular Volume 85 fL (80-100); NEUTROPHILS ABSOLUTE AUTO 10.78 K/mm3 (1.96-9.15); NEUTROPHILS PERCENT AUTO 76 % (41-73); NRBC ABSOLUTE 0.00 K/mm3 (0.00-0.02); NRBC Auto 0.0 /100 WBC (0.0-0.2); Platelet Count 177 K/mm3 (150-400); RDW Coefficient Variation 13.6 % (11.7-14.2); RDW Standard Deviation 42.2 fL (35.1-46.3)
[2025-03-24 21:50] LABS: Alanine Aminotransfer (ALT/SGP 37.0 U/L (12-78); Albumin, Blood 4.5 g/dL (3.4-5.0); Albumin/Globulin Ratio 1.4 (0.8-1.8); Anion Gap 10.0 mmol/L (3-11); Aspartate Aminotrans (AST/SGOT 41.0 U/L (12-37); Bilirubin, Total 1.5 mg/dL (0.1-1.0); Blood Urea Nitrogen 21.0 mg/dL (8-24); CO2, Blood 27.0 mmol/L (21-32); Calcium, Blood 9.5 mg/dL (8.5-10.1); Chloride, Blood 98.0 mmol/L (98-108); Creatinine, Blood 1.07 mg/dL (0.60-1.20); Globulin, Blood 3.3 g/dL (2.2-4.0); Glucose, Blood 162.0 mg/dL (70-99); Potassium, Blood 3.8 mmol/L (3.5-5.5); Sodium, Blood 131.0 mmol/L (136-145); Total Protein, Blood 7.8 g/dL (6.4-8.2)
[2025-03-24] MEDS ORDERED: Morphine Sulfate 4 MG/1 ML Injection IV ONE (23:05)
[2025-03-24] MEDS ORDERED: Ketorolac Tromethamine 15mg Vial IV ONE (23:05)
[2025-03-25] MEDS ORDERED: HYDROmorphone HCl/Pf 1MG SYR IV ONE (00:35)
[2025-03-25] MEDS ORDERED: KETO10 PO (00:41)
[2025-03-25] MEDS ORDERED: ACET500 PO (00:41)
[2025-03-25] MEDS ORDERED: LIDO700A20 TOP (00:41)
[2025-03-25 01:11] VITALS: BP 188/99
== END 2025-03-25 01:21 | disposition home or self-care (01) ==
LOC: ER 20:23
PROVIDERS: Student in an Organized Health Care Education/Training Program
DX: M25.511 Pain in right shoulder (principal); I48.91 Unspecified atrial fibrillation; I12.9 Hypertensive chronic kidney disease with stage 1 through stage 4 chronic kidney disease, or unspecified chronic kidney disease; N18.30 Chronic kidney disease, stage 3 unspecified; K21.9 Gastro-esophageal reflux disease without esophagitis; Z79.02 Long term (current) use of antithrombotics/antiplatelets; Z79.899 Other long term (current) drug therapy; Z79.82 Long term (current) use of aspirin
CPT/HCPCS: 71046; 73030; 80053; 83690; 83880; 84484; 85025; 93005; 93010; 96374; 96375; 99283-25; A9270; J1171; J1885; J2270

== ENCOUNTER → 2025-04-27 | Outpatient (CLI) | payer MEDICARE ==
[~2025-04-27] MED LIST changes: +KETO10 PO; +LIDO700A20 TOP
[2025-04-28 09:32] LABS: Stool Occult Bld Immuno 1 Positive (NEGATIVE)
== END ==
LOC: LAB SHORT 10:00 → LAB 10:00
PROVIDERS: Family Medicine
DX: R19.5 Other fecal abnormalities (principal)
CPT/HCPCS: 82274

== ENCOUNTER → 2025-05-29 | Outpatient (CLI) | payer MEDICARE | LOC: LAB 16:53 → LAB SHORT 16:53 | DX: N39.0 Urinary tract infection, site not specified (principal) | CPT/HCPCS: 87086 ==

== ENCOUNTER → 2025-06-27 | Outpatient (CLI) | payer MEDICARE ==
[2025-06-27 16:38] LABS: BASOPHILS ABSOLUTE AUTO 0.03 K/mm3 (0.00-0.23); BASOPHILS PERCENT AUTO 0 % (0-2); EOSINOPHILS ABSOLUTE AUTO 0.00 K/mm3 (0.00-0.68); EOSINOPHILS PERCENT AUTO 0 % (0-6); Hematocrit 39.4 % (37.0-53.0); Hemoglobin 13.0 g/dL (13.5-17.5); IMMATURE GRAN ABSOLUTE AUTO 0.04 K/mm3 (0.00-0.10); IMMATURE GRAN PERCENT AUTO 0 % (0-1); LYMPHOCYTES ABSOLUTE AUTO 2.78 K/mm3 (0.84-5.20); LYMPHOCYTES PERCENT AUTO 30 % (21-46); MONOCYTES ABSOLUTE AUTO 1.03 K/mm3 (0.16-1.47); MONOCYTES PERCENT AUTO 11 % (4-13); Mean Corpuscular HGB Conc 33.0 g/dL (31.5-36.5); Mean Corpuscular Volume 84 fL (80-100); NEUTROPHILS ABSOLUTE AUTO 5.47 K/mm3 (1.96-9.15); NEUTROPHILS PERCENT AUTO 59 % (41-73); NRBC ABSOLUTE 0.00 K/mm3 (0.00-0.02); NRBC Auto 0.0 /100 WBC (0.0-0.2); Platelet Count 185 K/mm3 (150-400); RDW Coefficient Variation 15.8 % (11.7-14.2); RDW Standard Deviation 48.1 fL (35.1-46.3)
[2025-06-27 17:27] LABS: Ferritin, Serum 207.0 ng/mL (26-388); Total Iron Binding Capacity 360.0 ug/dL (250-450)
== END ==
LOC: LAB 12:45 → LAB SHORT 12:45
PROVIDERS: Internal Medicine Hematology & Oncology
DX: E61.1 Iron deficiency (principal)
CPT/HCPCS: 82728; 83540; 83550; 85025